=== PATIENT | female | born 1960 | race Caucasian/White ===

== ENCOUNTER 2021-01-23 08:22 | Emergency (ER) | payer MEDICARE, SELFPAY ==
[2021-01-23 08:24] VITALS: BP 129/84; PULSE 107; RESP 16; TEMP 37.3; O2SAT 98; BMI 42.7
--- NOTE | 2021-01-23 08:41 | CT_ITS ---
PROCEDURE: CT FACIAL BONES W CON CLINICAL HISTORY: Nasal septum abscess COMPARISON: No exams were available for comparison TECHNIQUE: 75 mL Isovue 370 Axial images obtained with sagittal and coronal reformats. All CT scans at the facility use one or more dose reduction, viz: automated exposure control, ma/kV adjustment per patient size (including targeted exams where dose is matched to indication, i.e. head), or iterative reconstruction technique. FINDINGS: There is mild soft tissue swelling involving the nose inferiorly and anteriorly. No organized abscess is apparent. Mild soft tissue swelling is present involving the anterior aspect of the nasal septum at the nasal region but no obvious abscess apparent. There is mild rightward nasal septal deviation. Small retention cyst is present in the right aspect of the maxillary sinus medially at 5 mm. The ethmoid, frontal, and sphenoid sinuses have an unremarkable appearance with the exception of a small sphenoid sinus retention cyst at approximately 5 mm posteriorly and on the left. No sinus air-fluid level apparent or diffuse mucosal thickening. No acute fracture or dislocation. No bony destructive process apparent. IMPRESSION: 1. No obvious abscess apparent. 2. Mild soft tissue swelling involving the nose and anterior nasal septum suggesting cellulitis. No drainable fluid collections apparent. 3. Mild rightward nasal septal deviation. Dictated by: Yunior Edwards MD 01/23/2021 09:44 Yunior Edwards MD in [place] 01/23/2021 09:44
--- NOTE | 2021-01-23 08:46 | HMH.EDGENADL ---
ED Disposition Clinical Impression: Cellulitis of nose Disposition: Home, Self-Care Condition on Discharge: Good Instructions: Cellulitis Prescriptions: Sulfamethoxazole/Trimethoprim [Bactrim DS tablet] 1 each PO BID 10 Days #40 tab Transmission Status: Pending to [facility] cephALEXin [Cephalexin 500mg Tab] 500 mg PO Q6H 10 Days #40 tab Transmission Status: Pending to [facility] Referrals: Emmanuel Parra MD [Primary Care Provider] - Bhavik Anderson MD [Staff Physician] - 01/25/21 (Call for appointment) - Critical Care Critical Care Time: No Attestation: On 01/23/21, the high probability of a clinically significant, sudden or life threatening deterioration of the following system(s) required my full and direct attention, intervention and personal management. The time I documented below is in addition to time spent performing reported procedures but includes the following listed in this critical care notation. Medical Decision Making - Medical Records Medical records reviewed: Yes: I reviewed the patient's medical records. - Arnold Inquiry Pt receiving controlled substance: No Vital Signs: 01/23/21 08:24 01/23/21 09:00 01/23/21 09:37 Temperature 99.1 F Temperature Source Oral Pulse Rate 94 H 98 H Pulse Rate [Radial] 107 H Respiratory Rate 16 18 18 Blood Pressure 137/89 104/85 L Blood Pressure [Right Arm] 129/84 Blood Pressure Mean [Right Arm] 99 Blood Pressure Position Sitting Blood Pressure Position [Right Arm] Sitting 02 Sat by Pulse Oximetry 98 97 98 Oxygen Delivery Method Room Air Room Air 01/23/21 09:40 Temperature Temperature Source Pulse Rate 102 H Pulse Rate [Radial] Respiratory Rate 18 Blood Pressure 104/85 L Blood Pressure [Right Arm] Blood Pressure Mean [Right Arm] Blood Pressure Position Blood Pressure Position [Right Arm] 02 Sat by Pulse Oximetry 97 Oxygen Delivery Method - Lab Data Lab Results 01/23/21 08:51: WBC 13.4 H, RBC 4.80, Hgb 12.5, Hct 31.3 L, MCV 65.1 L, MCH 26.0 L, MCHC 39.9 H, RDW 15.2, Plt Count 128 L, MPV 15.2 H, Neut % (Auto) 69.2, Lymph % (Auto) 21.1, [place] % (Auto) 6.2, Eos % (Auto) 1.8, Baso % (Auto) 1.8, Neut # (Auto) 9.3 H, Lymph # (Auto) 2.8, [place] # (Auto) 0.8, Eos # (Auto) 0.2, Baso # (Auto) 0.2 01/23/21 08:51: Sodium 136, Potassium 3.7, Chloride 100, Carbon Dioxide 23, Anion Gap 16.7 H, BUN 10, Creatinine 0.60, Estimated Creat Clear 95, Estimated GFR 102, Est GFR ( Amer) 124, Glucose 236 H, Calcium 9.0 Result diagrams: 01/23/21 08:51 01/23/21 08:51 Orders (Tests/Meds): ED MEDICATIONS Generic Name Dose Route Start Last Admin Trade Name Freq PRN Reason Stop Dose Admin Ceftriaxone Sodium 1 gm/ 50 mls @ 100 mls/hr 01/23/21 08:45 01/23/21 08:53 Sodium Chloride IV 02/06/21 08:44 100 mls/hr Q24H [place] Administration Protocol Discontinued Medications Generic Name Dose Route Start Last Admin Trade Name Freq PRN Reason Stop Dose Admin Sodium Chloride 1,000 mls @ 999 mls/hr 01/23/21 08:45 01/23/21 08:53 Sod Chlor 0.9% 1000ml Bag IV 01/23/21 09:45 999 mls/hr .Q1H1M [place] Administration Iopamidol 75 ml 01/23/21 09:27 01/23/21 09:28 Iopamidol-370 (76%);100ml Bottle IV 01/23/21 09:28 75 ml ONCE ONE Administration Ketorolac Tromethamine 30 mg 01/23/21 10:51 Ketorolac 30mg/Ml Vial IV 01/23/21 10:52 ONCE ONE Sodium Chloride 10 ml 01/23/21 09:27 01/23/21 09:28 Sodium Chloride 0.9% 10ml Syr (Rad Only) IV 01/23/21 09:28 10 ml ONCE ONE Administration - CT Data CT Scan: Other (face) Time Received: 10:[address] Reviewed: Yes: I have reviewed the patient's CT results, I have viewed the radiologist's interpretation Findings Narrative: IMPRESSION: 1. No obvious abscess apparent. 2. Mild soft tissue swelling involving the nose and anterior nasal septum suggesting cellulitis. No drainable fluid collections apparent. 3. Mild ri
[2021-01-23 09:00] VITALS: BP 137/89; PULSE 94; RESP 18; O2SAT 97
[2021-01-23 09:01] LABS: Basophils # 0.2 K/mm3 (0-0.2); Basophils % 1.8 % (0.1-2.0); Eosinophils # 0.2 K/mm3 (0.0-0.4); Eosinophils % 1.8 % (0.1-12.0); Hematocrit 31.3 % (37.0-47.0); Hemoglobin 12.5 g/dL (12.2-16.2); Lymphocytes # 2.8 K/mm3 (0.7-4.5); Lymphocytes % 21.1 % (10-50); Mean Corpuscular HGB Conc 39.9 g/dL (31.8-35.4); Mean Corpuscular Volume 65.1 fl (81-99); Mean Platelet Volume 15.2 fl (7.4-10.4); Monocytes # 0.8 K/mm3 (0.1-1.0); Monocytes % 6.2 % (1.7-9.3); Neutrophils # 9.3 K/mm3 (1.8-7.8); Neutrophils % 69.2 % (37.0-80.0); Platelet Count 128 K/mm3 (142-424); White Blood Count 13.4 K/mm3 (4.8-10.8)
[2021-01-23 09:02] LABS: Red Cell Distribution Width 15.2 % (11.5-17.5)
[2021-01-23 09:03] LABS: Chloride 100 mmol/L (98-107); Potassium 3.7 mmoL/L (3.5-5.1); Sodium 136 mmol/L (136-145)
[2021-01-23 09:05] LABS: Blood Urea Nitrogen 10 mg/dl (7-17); Creatinine Clearance Estimated 95 mL/min (50-200); Estimated Glomerular Filt Rate 102 ml/min (>60); GFR (African American) 124 ML/MIN (>60)
[2021-01-23 09:06] LABS: Anion Gap 16.7 mEq/L (5-15); Carbon Dioxide 23 mmol/L (22.0-30.0); Glucose 236 mg/dl (74-100)
[2021-01-23 09:37] VITALS: BP 104/85; PULSE 98; RESP 18; O2SAT 98
[2021-01-23 09:40] VITALS: BP 104/85; PULSE 102; RESP 18; O2SAT 97
[2021-01-23 11:04] VITALS: BP 132/74; PULSE 98; RESP 18; TEMP 37.1; O2SAT 98
== END 2021-01-23 11:06 | disposition home or self-care (01) ==
PROVIDERS: Emergency Provider Emergency Medicine; PCP Family Medicine
DX: J34.0 Abscess, furuncle and carbuncle of nose (principal); E11.9 Type 2 diabetes mellitus without complications; Z79.899 Other long term (current) drug therapy
CPT/HCPCS: 70487; 80048; 85025; 96365; 96367; 96375; 99282; Q9967

== ENCOUNTER 2021-05-31 20:13 | Emergency (ER) | payer MEDICARE, SELFPAY ==
[2021-05-31 20:14] VITALS: BP 135/82; PULSE 112; RESP 22; TEMP 36.8; O2SAT 98; BMI 38.7
--- NOTE | 2021-05-31 21:05 | HMH.EDEPIS ---
ED Disposition Clinical Impression: Epistaxis not due to trauma Disposition: Home, Self-Care Condition on Discharge: Good Instructions: DI for Nosebleed Additional Instructions: remove in am and recheck if needed Referrals: Emmanuel Parra MD [Primary Care Provider] - - Critical Care Critical Care Time: No Attestation: On 05/31/21, the high probability of a clinically significant, sudden or life threatening deterioration of the following system(s) required my full and direct attention, intervention and personal management. The time I documented below is in addition to time spent performing reported procedures but includes the following listed in this critical care notation. Medical Decision Making - Medical Records Medical records reviewed: Yes: I reviewed the patient's medical records. - Arnold Inquiry Pt receiving controlled substance: No Vital Signs: 05/31/21 20:14 Temperature 98.3 F Temperature Source Oral Pulse Rate [Right] 112 H Respiratory Rate 22 Blood Pressure [Right Arm] 135/82 Blood Pressure Mean [Right Arm] 99 02 Sat by Pulse Oximetry 98 Oxygen Delivery Method Room Air Medical Decision Narrative: remove packing in am Epistaxis HPI - General Chief complaint: Epistaxis Stated complaint: nose bleed Time Seen by Provider: 05/31/21 20:20 Mode of Arrival: Family Vehicle Source of Information: Patient, Medical Record Limitations: No Limitations Description of Symptoms (Recalled from ER Triage Doc. by RN): nose bleed started aprox 1955pt states she started passing clots through the nose. pt states no hx of nose bleeds - History of Present Illness HPI Narrative: acute atraumatic lt nares nosebleed unable to stop at home and no blood thinners complaint: epistaxis Location: left nostril Onset (ago): hour(s) Duration: intermittent Treatment prior to arrival: nose pinching, stuffed nose with tissue - Related Data Home Medications Medication Instructions Recorded Confirmed atorvastatin 40 mg tablet PO 30 Days #30 tab 06/14/18 02/06/21 metformin 1,000 mg tablet PO 30 Days #60 tab 06/14/18 02/06/21 paroxetine HCl 10 mg tablet 10 mg PO DAILY 06/14/18 02/06/21 potassium chloride 10 mEq PO 30 Days #30 tab 06/14/18 02/06/21 tablet,extended release cholecalciferol (vitamin D3) 125 5,000 unit PO DAILY 05/18/19 02/06/21 mcg (5,000 unit) capsule ergocalciferol (vitamin D2) 1,250 50,000 unit PO QWEEK 05/18/19 02/06/21 mcg (50,000 unit) capsule insulin glargine 100 unit/mL (3 20 unit SQ DAILY 05/18/19 02/06/21 mL) subcutaneous pen insulin glargine 100 unit/mL (3 30 unit SQ DAILY 05/18/19 02/06/21 mL) subcutaneous pen Previous Rx's Medication Instructions Recorded Furosemide [Lasix 20mg tab] 20 mg PO DAILY #3 tab 11/30/17 fluticasone propionate 50 1 spray INTRANASAL DAILY #15.8 g 06/14/18 mcg/actuation nasal spray,suspension Sulfamethoxazole/Trimethoprim 1 each PO BID 10 Days #40 tab 01/23/21 [Bactrim DS tablet] cephALEXin [Cephalexin 500mg Tab] 500 mg PO Q6H 10 Days #40 tab 01/23/21 Allergies Allergy/AdvReac Type Severity Reaction Status Date / Time hydromorphone [From DILAUDID] Allergy Unknown MAKES HER Verified 02/06/21 14:59 FEEL LIKE SOMETHING CRAWLING ON HER SKIN meperidine [MEPERIDINE] Allergy Unknown NA-NAUSEA/V Verified 02/06/21 14:59 OMITING [facility] History - Hepatitis A Screen Drug use history?: No High risk sexual behaviors?: No History of sexually transmitted infection?: No Currently employed?: No Childcare worker?: No Do you have indoor plumbing?: Yes Do you have electricity?: Yes Attestation statement:: This patient has been screened for Hepatitis A risk factors. I have reviewed the patient's past medical history: Yes Medical History: Reports:: Diabetes Mellitus Type 2, Hyperlipidemia Denies:: Cancer, MRSA Laterality Cases: Right: Arthroscopy Knee Other Surgeries: Yes: Cardiac Catheteriz
[2021-05-31 21:33] VITALS: BP 101/73; PULSE 102; RESP 16; TEMP 36.9
== END 2021-05-31 21:40 | disposition home or self-care (01) ==
PROVIDERS: Emergency Provider Emergency Medicine; PCP Family Medicine
DX: R04.0 Epistaxis (principal); E11.9 Type 2 diabetes mellitus without complications; E78.5 Hyperlipidemia, unspecified; Z79.899 Other long term (current) drug therapy
CPT/HCPCS: 30901; 96365; 99282

== ENCOUNTER 2021-09-20 09:01 | Emergency (ER) | payer MEDICARE, SELFPAY ==
[2021-09-20 09:19] VITALS: BP 152/71; PULSE 111; RESP 20; TEMP 36.6; O2SAT 96; BMI 41.9
--- NOTE | 2021-09-20 09:25 | HMH.EDUTC ---
[facility] [place] Clinical Impression: Pharyngitis Qualifiers: Pharyngitis/tonsillitis etiology: unspecified etiology Qualified Code(s): J02.9 - Acute pharyngitis, unspecified Sinusitis Qualifiers: Sinusitis location: unspecified location Chronicity: acute Recurrence: non-recurrent Qualified Code(s): J01.90 - Acute sinusitis, unspecified Disposition: Home, Self-Care Condition on Discharge: Good Instructions: DI for Pharyngitis/Tonsillopharyngitis -- Adult, DI for Sinusitis Additional Instructions: Drink plenty of fluids. Take tylenol or ibuprofen for pain or fever. Take the medications as directed. Follow up with your regular doctor. GO TO THE ER FOR ANY WORSENING SYMPTOMS Quarantine until you know the results of your covid-19 test. Notify your school or workplace of your results and follow their instructions regarding return to work/school. Prescriptions: Amoxicillin [Amoxicillin 875MG Tab] 875 mg PO Q12H #20 tab Transmission Status: Received by [facility] guaiFENesin [Mucinex 600mg tablet] 1 - 2 tab PO BIDP PRN #30 tab PRN Reason: Congestion Transmission Status: Received by [facility] Referrals: Provider,Referral, MD [Primary Care Provider] - Time of Disposition: 10:15 Medical Decision Making - Medical Records Medical records reviewed: No: I reviewed the patient's medical records. - Arnold Inquiry Pt receiving controlled substance: No Vital Signs: 09/20/21 09:19 09/20/21 10:20 Temperature 98 F 98 F Temperature Source Oral Pulse Rate 111 H Pulse Rate [Left] 111 H Respiratory Rate 20 20 Blood Pressure 152/71 H Blood Pressure [Right Arm] 152/71 H Blood Pressure Mean [Right Arm] 98 02 Sat by Pulse Oximetry 96 - Lab Data Lab results reviewed: Yes: I reviewed the patient's lab results. Lab Results 09/20/21 09:25: Group A Strep Rapid Negative Orders (Tests/Meds): ORDERS Category Date Time Status Covid-19 Nasal PCR ([facility]) Routine Lab 09/20/21 09:25 Received Strep Screen Confirmation Stat Micro 09/20/21 09:25 Received [facility] [place] - General Stated complaint: possible strep Time Seen by Provider: 09/20/21 09:25 - History of Present Illness Provider Complaint: She states that for the past 2 days she has had a worsening sore throat. She denies any fever or chills. She denies any cough or chest congestion. She has been fully vaccinated against covid-19. - Related Data Home Medications Medication Instructions Recorded Confirmed atorvastatin 40 mg tablet PO 30 Days #30 tab 06/14/18 02/06/21 metformin 1,000 mg tablet PO 30 Days #60 tab 06/14/18 02/06/21 paroxetine HCl 10 mg tablet 10 mg PO DAILY 06/14/18 02/06/21 potassium chloride 10 mEq PO 30 Days #30 tab 06/14/18 02/06/21 tablet,extended release cholecalciferol (vitamin D3) 125 5,000 unit PO DAILY 05/18/19 02/06/21 mcg (5,000 unit) capsule ergocalciferol (vitamin D2) 1,250 50,000 unit PO QWEEK 05/18/19 02/06/21 mcg (50,000 unit) capsule insulin glargine 100 unit/mL (3 20 unit SQ DAILY 05/18/19 02/06/21 mL) subcutaneous pen insulin glargine 100 unit/mL (3 30 unit SQ DAILY 05/18/19 02/06/21 mL) subcutaneous pen Previous Rx's Medication Instructions Recorded Furosemide [Lasix 20mg tab] 20 mg PO DAILY #3 tab 11/30/17 fluticasone propionate 50 1 spray INTRANASAL DAILY #15.8 g 06/14/18 mcg/actuation nasal spray,suspension Sulfamethoxazole/Trimethoprim 1 each PO BID 10 Days #40 tab 01/23/21 [Bactrim DS tablet] cephALEXin [Cephalexin 500mg Tab] 500 mg PO Q6H 10 Days #40 tab 01/23/21 Amoxicillin [Amoxicillin 875MG 875 mg PO Q12H #20 tab 09/20/21 Tab] guaiFENesin [Mucinex 600mg tablet] 1 - 2 tab PO BIDP PRN #30 tab 09/20/21 Allergies Allergy/AdvReac Type Severity Reaction Status Date / Time hydromorphone [From DILAUDID] Allergy Unknown MAKES HER Verified 09/20/21 09:30 FEEL LIKE SOMETHING CRAWLING ON HER SKIN mep
[2021-09-20 09:48] LABS: Strep Scrn Group A (Rapid) Negative (Negative)
[2021-09-20 10:20] VITALS: BP 152/71; PULSE 111; RESP 20; TEMP 36.6
== END 2021-09-20 10:22 | disposition home or self-care (01) ==
PROVIDERS: Emergency Provider Nurse Practitioner Family
DX: J01.90 Acute sinusitis, unspecified (principal); E11.9 Type 2 diabetes mellitus without complications; E78.5 Hyperlipidemia, unspecified; Z20.822 Contact with and (suspected) exposure to COVID-19
CPT/HCPCS: G0463; 87430; 99203; C9803; U0003; U0005

== ENCOUNTER 2022-01-18 09:02 | Emergency (ER) | payer MEDICARE, SELFPAY ==
[2022-01-18 09:05] VITALS: BP 122/72; PULSE 91; RESP 16; TEMP 37; O2SAT 98; BMI 40.8
--- NOTE | 2022-01-18 09:13 | XR_ITS ---
FINAL REPORT CLINICAL HISTORY: dropped water bottle on lt foot last night, pain FINDINGS: LEFT FOOT: Three views of the left foot were obtained. There is no acute fracture or dislocation. There are mild degenerative changes. There is a plantar calcaneal spur. IMPRESSION: No acute bony abnormality. Reviewed, Interpreted and Dictated by Dave Linn III, MD Transcribed by Mary Gonzalez Authenticated and . [facility]
--- NOTE | 2022-01-18 09:58 | HMH.EDUTC ---
[facility] [place]position Clinical Impression: Contusion, toes Qualifiers: Encounter type: initial encounter Toe: unspecified toe Damage to nail status: without damage Laterality: unspecified laterality Qualified Code(s): S90.129A - Contusion of unspecified lesser toe(s) without damage to nail, initial encounter Disposition: Home, Self-Care Condition on Discharge: Good Instructions: How To Perform RICE (Rest, Ice, Compress, Elevate) Additional Instructions: *weight bearing as tolerated *RICE, Rest the extremity, Ice 15-20 minutes 3-4 times daily, Compress- wear the blane wrap as discussed as much as possible to help reduce swelling and pain, Elevate the extremity when at rest *Blane wrap is for support and help control swelling, use it except in the shower. Be sure that is not to tight but not to loose either *Elevate when resting *Ibuprofen as directed on package every 6-8 hours as needed for pain an inflammation. If need something more can take Tylenol in between doses of Ibuprofen to help Immediately follow up with your family doctor for new or worsening of symptoms, or no noticeable improvement over the next 3-5 days Referrals: Emmanuel Parra MD [Primary Care Provider] - As needed Time of Disposition: 10:03 Medical Decision Making - Arnold Inquiry Pt receiving controlled substance: No Arnold was queried for this patient: No Vital Signs: 01/18/22 09:05 01/18/22 10:12 Temperature 98.6 F 98.6 F Temperature Source Oral Pulse Rate 91 H Pulse Rate [Right Brachial] 91 H Respiratory Rate 16 16 Blood Pressure 122/72 Blood Pressure [Right Arm] 122/72 Blood Pressure Mean [Right Arm] 88 Blood Pressure Source [Right Arm] Automatic Cuff Blood Pressure Position [Right Arm] Sitting 02 Sat by Pulse Oximetry 98 Oxygen Delivery Method Room Air - Radiology Data #1 Image(s): Foot/Toes Image Reviewed: Yes I reviewed the patient's radiology image Preliminary Findings: No Fracture Seen [facility] [place] HPI - General Stated complaint: possible broken toe lt foot Time Seen by Provider: 01/18/22 09:58 Mode of Arrival: Ambulatory Source of Information: Patient Limitations: No Limitations Description of Symptoms (Recalled from Triage Doc. by RN): PATIENT STATES SHE DROPPED A METAL WATER BOTTLE ON HER LEFT FOOT AND THINKS SHE BROKE HER TOES HEENT Symptoms (Recalled from RN notes): No Resp Symptoms (Recalled from RN notes): No Skin Symptoms (Recalled from RN notes): No MS Symptoms (Recalled from RN notes): Yes Functional Status (Recalled from RN notes): WNL - History of Present Illness Provider Complaint: Patient states that she accidently knocked off a metal bottle of water last night from the night stand and it landed on her left 4th and 5th toes States that she is worried that she may have broken them so she came in to get them checked - Related Data Home Medications Medication Instructions Recorded Confirmed atorvastatin 40 mg tablet PO 30 Days #30 tab 06/14/18 02/06/21 metformin 1,000 mg tablet PO 30 Days #60 tab 06/14/18 02/06/21 paroxetine HCl 10 mg tablet 10 mg PO DAILY 06/14/18 02/06/21 potassium chloride 10 mEq PO 30 Days #30 tab 06/14/18 02/06/21 tablet,extended release cholecalciferol (vitamin D3) 125 5,000 unit PO DAILY 05/18/19 02/06/21 mcg (5,000 unit) capsule ergocalciferol (vitamin D2) 1,250 50,000 unit PO QWEEK 05/18/19 02/06/21 mcg (50,000 unit) capsule insulin glargine 100 unit/mL (3 20 unit SQ DAILY 05/18/19 02/06/21 mL) subcutaneous pen insulin glargine 100 unit/mL (3 30 unit SQ DAILY 05/18/19 02/06/21 mL) subcutaneous pen Previous Rx's Medication Instructions Recorded Furosemide [Lasix 20mg tab] 20 mg PO DAILY #3 tab 11/30/17 fluticasone propionate 50 1 spray INTRANASAL DAILY #15.8 g 06/14/18 mcg/actuation nasal spray,suspension Sulfamethoxazole/Trimethoprim 1 each PO BID 10 Days #40 tab 01/23/21 [Bactrim DS tablet] cephALEXin [Cephalexin 500mg Tab] 500 mg PO Q6H 10 Da
[2022-01-18 10:12] VITALS: BP 122/72; PULSE 91; RESP 16; TEMP 37; O2SAT 98
== END 2022-01-18 10:23 | disposition home or self-care (01) ==
PROVIDERS: Emergency Provider Nurse Practitioner; PCP Family Medicine
DX: S90.129A Contusion of unspecified lesser toe(s) without damage to nail, initial encounter (principal); Z88.6 Allergy status to analgesic agent; E11.9 Type 2 diabetes mellitus without complications; E78.5 Hyperlipidemia, unspecified
CPT/HCPCS: 73630; 99212; G0463

== ENCOUNTER 2022-02-03 19:38 | Emergency (ER) | payer MEDICARE, SELFPAY ==
[2022-02-03 19:48] VITALS: BP 139/88; PULSE 110; RESP 18; TEMP 36.8; O2SAT 96; BMI 41.9
--- NOTE | 2022-02-03 20:13 | HMH.EDUTC ---
[facility] [place] Clinical Impression: UTI (urinary tract infection) Qualifiers: Urinary tract infection type: acute cystitis Hematuria presence: with hematuria Qualified Code(s): N30.01 - Acute cystitis with hematuria Second degree burn of right foot Qualifiers: Encounter type: initial encounter Qualified Code(s): T25.221A - Burn of second degree of right foot, initial encounter Disposition: Home, Self-Care Condition on Discharge: Good Instructions: DI for Urinary Tract Infection (UTI) Additional Instructions: Drink plenty of fluids. Take tylenol or ibuprofen for pain or fever. Take the medications as directed. Follow up with your regular doctor. GO TO THE ER FOR ANY WORSENING SYMPTOMS The pyridium will make your urine turn orange, this is an expected side effect. It will stain your clothes if it comes into contact with them. We will culture the urine. That will tell what bacteria is causing your infection and which antibiotics will treat it best. Sometimes the first antibiotic we prescribe turns out to not work against different bacteria. So, make sure you follow up within 3 days if you are not getting better. Make sure you follow up with your surgeon by Saturday. Use the Mupirocin ointment on the small burn you have on top of your right foot. Prescriptions: Mupirocin [Bactroban 2% Ointment 22gm tube] 1 applicatio TP TID 7 Days #1 gm [email or web address] Ciprofloxacin HCl [Cipro 500mg Tab] 500 mg PO BID 7 Days #14 tab Transmission Status: Received by [facility] Phenazopyridine HCl [Pyridium 200mg Tablet] 200 pow PO TID #6 tab Transmission Status: [email or web address] Referrals: Emmanuel Parra MD [Primary Care Provider] - Time of Disposition: 20:26 Medical Decision Making - Medical Records Medical records reviewed: No: I reviewed the patient's medical records. - Arnold Inquiry Pt receiving controlled substance: No Vital Signs: 02/03/22 19:48 02/03/22 20:51 Temperature 98.3 F 98.3 F Temperature Source Oral Pulse Rate 110 H Pulse Rate [Left Radial] 110 H Respiratory Rate 18 18 Blood Pressure 139/88 Blood Pressure [Right Arm] 139/88 Blood Pressure Mean [Right Arm] 105 02 Sat by Pulse Oximetry 96 - Lab Data Lab results reviewed: Yes: I reviewed the patient's lab results. Lab Results 02/03/22 20:04: Urine Color Yellow, Urine Appearance Cloudy, Urine pH 5.5, Ur Specific [place] >= 1.030, Urine Protein 2+, Urine Glucose (UA) 1+, Urine Ketones Trace, Urine Blood 2+, Urine Nitrate Negative, Urine Bilirubin Negative, Urine Urobilinogen 0.2, Ur Leukocyte Esterase Trace Orders (Tests/Meds): ED MEDICATIONS Discontinued Medications Generic Name Dose Route Start Last Admin Trade Name Mike PRN Reason Stop Dose Admin Ceftriaxone Sodium 1 gm 02/03/22 20:20 02/03/22 20:38 Ceftriaxone 1gm Vial IM 02/03/22 20:21 1 gm ONCE ONE Administration Lidocaine HCl 0 ml 02/03/22 20:20 02/03/22 20:38 Lidocaine 1% 5ml Pf Vial IM 02/03/22 20:21 2 ml ONCE ONE Administration ORDERS Category Date Time Status Urine Culture Stat Micro 02/03/22 19:51 Results [facility] [place] - General Stated complaint: Possible UTI Time Seen by Provider: 02/03/22 20:13 - History of Present Illness Provider Complaint: She has been having low back pain and dysuria for the past 2 days. She also has a small burn in the top of her right foot that happened when she was cooking 3 days ago. She states that it is getting better. - Related Data Home Medications Medication Instructions Recorded Confirmed atorvastatin 40 mg tablet PO 30 Days #30 tab 06/14/18 02/06/21 metformin 1,000 mg tablet PO 30 Days #60 tab 06/14/18 02/06/21 paroxetine HCl 10 mg tablet 10 mg PO DAILY 06/14/18 02/06/21 potassium chloride 10 mEq PO 30 Days #30 tab 06/14/18 02/06/21 tablet,extended release cholecalciferol
[2022-02-03 20:40] LABS: Apearance,Urine Cloudy (Clear); Color,Urine Yellow (Yellow); Glucose,Urine (UA) 1+ (Negative); Ketones,Urine TRACE (Negative); PH,Urine 5.5 (5.0-8.5); Specific Gravity, Urine >= 1.030 (1.005-1.030)
[2022-02-03 20:41] LABS: Protein,Urine 2+ (Negative)
[2022-02-03 20:42] LABS: Bilirubin,Urine Negative (Negative); Blood, Urine 2+ (Negative); UTC Leukocyte Esterase,Urine Trace (Negative); UTC Nitrate,Urine Negative (Negative); Urobilinogen,Urine 0.2 EU/dl (0.2)
[2022-02-03 20:51] VITALS: BP 139/88; PULSE 110; RESP 18; TEMP 36.8
== END 2022-02-03 20:52 | disposition home or self-care (01) ==
PROVIDERS: Emergency Provider Nurse Practitioner Family; PCP Family Medicine
DX: N30.01 Acute cystitis with hematuria (principal); T25.221A Burn of second degree of right foot, initial encounter; M54.50 Low back pain, unspecified; E78.5 Hyperlipidemia, unspecified; E11.9 Type 2 diabetes mellitus without complications; Z79.4 Long term (current) use of insulin; Z79.51 Long term (current) use of inhaled steroids; Z79.84 Long term (current) use of oral hypoglycemic drugs; Z79.899 Other long term (current) drug therapy; Z88.5 Allergy status to narcotic agent; Z88.6 Allergy status to analgesic agent; Z88.8 Allergy status to other drugs, medicaments and biological substances
CPT/HCPCS: 81003; 87086; 87088; 87186; 96372; 99213; G0463; J0696

== ENCOUNTER 2022-04-12 15:19 | Emergency (ER) | payer MEDICARE, SELFPAY ==
[2022-04-12 16:55] VITALS: BP 139/86; PULSE 86; RESP 18; TEMP 36.7; O2SAT 97; BMI 40.1
[2022-04-12 16:59] LABS: Apearance,Urine Cloudy (Clear); Color,Urine Dark Yellow (Yellow); Glucose,Urine (UA) Negative (Negative); Protein,Urine 1+ (Negative)
[2022-04-12 17:00] LABS: Bilirubin,Urine Negative (Negative); Blood, Urine Negative (Negative); Ketones,Urine 3+ (Negative); UTC Leukocyte Esterase,Urine 1+ (Negative); UTC Nitrate,Urine Negative (Negative); Urobilinogen,Urine 0.2 EU/dl (0.2)
--- NOTE | 2022-04-12 17:03 | EXP.UTC ---
Discharge Plan Disposition Patient Disposition: Home, Self-Care Condition: Good Prescriptions Prescriptions: New cefdinir 300 mg capsule 300 mg PO BID 10 Days Qty: 20 0RF phenazopyridine [Pyridium] 200 mg tablet 200 mg PO Q8H 2 Days Qty: 6 0RF No Action metformin 1,000 mg tablet PO 30 Days Qty: 60 atorvastatin 40 mg tablet PO 30 Days Qty: 30 potassium chloride 10 mEq tablet extended release PO 30 Days Qty: 30 paroxetine HCl [Paxil] 10 mg tablet 10 mg PO DAILY fluticasone propionate [Allergy Relief (fluticasone)] 50 mcg/actuation spray,suspension 1 spray INTRANASAL DAILY Qty: 15.8 2RF Rx Instructions: administer into each nostril Basaglar KwikPen U-100 Insulin 100 unit/mL (3 mL) insulin pen 30 unit SQ DAILY cholecalciferol (vitamin D3) 5,000 unit capsule 5,000 unit PO DAILY ergocalciferol (vitamin D2) [Vitamin D2] 50,000 unit capsule 50,000 unit PO QWEEK Basaglar KwikPen U-100 Insulin 100 unit/mL (3 mL) insulin pen 20 unit SQ DAILY furosemide 20 MG tablet 20 mg PO DAILY Qty: 3 0RF sulfamethoxazole-trimethoprim 1 EACH tablet 1 each PO BID 10 Days Qty: 40 0RF cephalexin 500 MG tablet 500 mg PO Q6H 10 Days Qty: 40 0RF amoxicillin 875 MG tablet 875 mg PO Q12H Qty: 20 0RF guaifenesin 600 MG tablet extended release 12hr 1 - 2 tab PO BIDP PRN (Reason: Congestion) Qty: 30 0RF phenazopyridine 200 MG tablet 200 pow PO TID Qty: 6 0RF ciprofloxacin HCl 500 MG tablet 500 mg PO BID 7 Days Qty: 14 0RF mupirocin 22 GM ointment 1 applicatio TP TID 7 Days Qty: 1 0RF Referrals Referrals: Emmanuel Parra MD [Primary Care Provider] - Enter time for follow up Activity Restrictions/Add. Instructions Additional Instructions/Restrictions: *Increase fluids. Water not Soda or Tea *Start antibiotic immediately and be sure to take as ordered for the FULL length of time although you should start to see improvement over the next 48 hours *Pyridium as needed Remember this medication will turn your urine . This is normal but it will stain what ever it gets on *You should not use Pyridium for more than 48 hours. If so , follow up with your primary physician to review urine culture and ensure that antibiotic is adequate for infection *Be SURE to follow up anytime for new or worsening symptoms with your family doctor. AND in 48 hours for urine culture results with your family doctor, if you do not have a doctor then you may call back to the [facility] for urine culture results and further treatment. We do recommend that you choose and establish care with a Primary Care Physician. ?AND follow up with them ?in 10-14 days to repeat UA to ensure infection is resolved and blood no longer present *Be sure to let your PCP know that we sent urine cultures from the [facility] so they can follow up to ensure that you area the on the correct antibiotic Call your doctor office and make appointment for 48 hours (2 days from today) ?to follow up and get the results of your urine culture and further treatment Go straight to ER for any life threatening symptoms Clinical Impressions Clinical Impression: UTI (urinary tract infection) Instructions Patient Instructions: DI for Urinary Tract Infection (UTI) Discharge ED Provider: Sanam Wright [facility] [place] General Stated complaint: burning,frequency Time Seen by Provider: 04/12/22 17:04 History of Present Illness Provider Complaint: Patient states that she is a diabetic and she gets UTI's States that she started having burning with urination a couple days ago and having urgency and frequency States that she noticed her blood sugar was a little higher than normal and she does that when she gets a UTI so she came in to get checked Related Data Home Medications Medication Instructions Recorded Confirmed atorvastatin 40 mg tablet PO 30 days #30 tabs 06/14/18 02/06/21 metformin 1,000 mg tablet PO 30
[2022-04-12 17:38] VITALS: BP 139/86; PULSE 86; RESP 18; TEMP 36.7; O2SAT 97
== END 2022-04-12 17:42 | disposition home or self-care (01) ==
PROVIDERS: Emergency Provider Nurse Practitioner; PCP Family Medicine
DX: N39.0 Urinary tract infection, site not specified (principal); E11.9 Type 2 diabetes mellitus without complications
CPT/HCPCS: 81003; 87086; 87088; 87186; 99212; G0463

== ENCOUNTER 2022-05-08 07:31 | Emergency (ER) | payer MEDICARE, SELFPAY ==
[2022-05-08 07:31] VITALS: BP 145/56; PULSE 115; RESP 20; TEMP 37.7; O2SAT 98; BMI 33.2
[2022-05-08 07:55] LABS: Microscopic, Urine URINE MICROSCOPIC (MICROSCOPIC)
[2022-05-08 07:58] LABS: Appearance,Urine SL CLOUDY (Clear); Bilirubin,Urine Negative (Negative); Blood, Urine 3+ (Negative); Color,Urine YELLOW (Yellow); Glucose,Urine (UA) 2+ (Negative); Ketones,Urine Negative (Negative); Leukocyte Esterase,Urine 2+ (Negative); Nitrate,Urine POSITIVE (Negative); PH,Urine 5.5 (5.0-8.5); Protein,Urine 2+ (Negative); Specific Gravity, Urine >= 1.030 (1.005-1.030)
[2022-05-08 08:01] VITALS: BP 103/55; PULSE 100; RESP 18; O2SAT 96
[2022-05-08 08:05] LABS: Bacteria,Urine 1+ /lpf; RBC,Urine 20-50 #/hpf (0-3)
[2022-05-08 08:22] LABS: Basophils # 0.1 K/mm3 (0-0.2); Basophils % 0.6 % (0.1-2.0); Eosinophils # 0.2 K/mm3 (0.0-0.4); Eosinophils % 2.5 % (0.1-12.0); Hematocrit 41.5 % (37.0-47.0); Lymphocytes # 1.9 K/mm3 (0.7-4.5); Lymphocytes % 22.3 % (10-50); Mean Corpuscular HGB Conc 31.3 g/dL (31.8-35.4); Mean Corpuscular Hemoglobin 25.9 pg (27.0-31.2); Mean Corpuscular Volume 82.6 fl (81-99); Mean Platelet Volume 8.1 fl (7.4-10.4); Monocytes # 0.5 K/mm3 (0.1-1.0); Monocytes % 5.5 % (1.7-9.3); Neutrophils # 5.9 K/mm3 (1.8-7.8); Neutrophils % 69.1 % (37.0-80.0); Platelet Count 248 K/mm3 (142-424); Red Blood Count 5.03 M/mm3 (4.20-5.40); Red Cell Distribution Width 16.2 % (11.5-17.5); White Blood Count 8.6 K/mm3 (4.8-10.8)
--- NOTE | 2022-05-08 08:23 | PC.NURSE ---
Pt ambulate to and from restroom
[2022-05-08 08:24] LABS: Chloride 98 mmol/L (98-107)
[2022-05-08 08:25] LABS: Potassium 4.3 mmoL/L (3.5-5.1); Sodium 138 mmol/L (136-145)
[2022-05-08 08:27] LABS: Alanine Aminotransferase 53 U/L (12-78); Alkaline Phosphatase 135 U/L (38-126); Aspartate Amino Transferase 89 U/L (14-36); Bilirubin,Total 0.3 mg/dl (0.2-1.3); Blood Urea Nitrogen 17 mg/dl (7-17); Creatinine Clearance Estimated 72 mL/min (50-200); Estimated Glomerular Filt Rate 85 ml/min (>60); GFR (African American) 103 ML/MIN (>60)
[2022-05-08 08:28] LABS: Albumin/Globulin Ratio 1.3 (1.1-1.8); Anion Gap 16.3 mEq/L (5-15); Calcium 9.2 mg/dl (8.4-10.2); Carbon Dioxide 28 mmol/L (22.0-30.0); Globulin 3.1 g/dL (1.3-3.2); Glucose 281 mg/dl (74-100); Total Protein,Serum 7.1 g/dl (6.3-8.2)
[2022-05-08 08:31] VITALS: BP 103/47; PULSE 94; O2SAT 95
--- NOTE | 2022-05-08 08:55 | PC.NURSE ---
pt updated on plan of care
[2022-05-08 09:00] VITALS: BP 111/56; PULSE 91; RESP 18; O2SAT 95
--- NOTE | 2022-05-08 09:03 | PC.NURSE ---
pt ambulate to restroom
--- NOTE | 2022-05-08 09:17 | CT_ITS ---
FINAL REPORT TECHNIQUE: Axial images through the abdomen and pelvis were performed without contrast. This study was performed with techniques to keep radiation doses as low as reasonably achievable, (ALARA). Individualized dose reduction techniques using automated exposure control or adjustment of mA and/or kV according to the patient's size were employed. CLINICAL HISTORY: R flank pain, r/o stone, had bladder surgery in december 2021 FINDINGS: Abdomen: There is pleural scarring in the left lung base. The liver is enlarged with moderate fatty infiltration. The gallbladder is absent. The spleen, pancreas, adrenals and kidneys are unremarkable. There is a fat containing umbilical hernia. Pelvis: There are a few small appendicoliths within the appendix. There is no localized inflammatory change. The uterus is present and lies midline. There are scattered diverticula throughout the descending and sigmoid colon. There is a large calcified stone within the dependent portion of the urinary bladder. Stone measures 1.7 cm. There is no pelvic mass or inflammation. IMPRESSION: Descending and sigmoid diverticulosis. Large calcified stone in the dependent urinary bladder. Small appendicoliths within the appendix without adjacent inflammation. Hepatomegaly with fatty infiltration of the liver. Reviewed, Interpreted and Dictated by Jun Paul MD Transcribed by Drew Hall Authenticated and [facility]
--- NOTE | 2022-05-08 09:18 | HMH.EDGENADL ---
Discharge Plan Disposition Patient Disposition: Home, Self-Care Condition: Good Prescriptions Prescriptions: New cefdinir 300 mg capsule 300 mg PO BID Qty: 20 0RF No Action metformin 1,000 mg tablet PO 30 Days Qty: 60 atorvastatin 40 mg tablet PO 30 Days Qty: 30 potassium chloride 10 mEq tablet extended release PO 30 Days Qty: 30 paroxetine HCl [Paxil] 10 mg tablet 10 mg PO DAILY fluticasone propionate [Allergy Relief (fluticasone)] 50 mcg/actuation spray,suspension 1 spray INTRANASAL DAILY Qty: 15.8 2RF Rx Instructions: administer into each nostril Basaglar KwikPen U-100 Insulin 100 unit/mL (3 mL) insulin pen 30 unit SQ DAILY cholecalciferol (vitamin D3) 5,000 unit capsule 5,000 unit PO DAILY ergocalciferol (vitamin D2) [Vitamin D2] 50,000 unit capsule 50,000 unit PO QWEEK Basaglar KwikPen U-100 Insulin 100 unit/mL (3 mL) insulin pen 20 unit SQ DAILY furosemide 20 MG tablet 20 mg PO DAILY Qty: 3 0RF sulfamethoxazole-trimethoprim 1 EACH tablet 1 each PO BID 10 Days Qty: 40 0RF cephalexin 500 MG tablet 500 mg PO Q6H 10 Days Qty: 40 0RF amoxicillin 875 MG tablet 875 mg PO Q12H Qty: 20 0RF guaifenesin 600 MG tablet extended release 12hr 1 - 2 tab PO BIDP PRN (Reason: Congestion) Qty: 30 0RF phenazopyridine 200 MG tablet 200 pow PO TID Qty: 6 0RF ciprofloxacin HCl 500 MG tablet 500 mg PO BID 7 Days Qty: 14 0RF mupirocin 22 GM ointment 1 applicatio TP TID 7 Days Qty: 1 0RF cefdinir 300 mg capsule 300 mg PO BID 10 Days Qty: 20 0RF phenazopyridine [Pyridium] 200 mg tablet 200 mg PO Q8H 2 Days Qty: 6 0RF Referrals Follow up/Referrals: Emmanuel Parra MD [Primary Care Provider] - See instructions Activity Restrictions/Add. Instructions Additional Instructions/Restrictions: You have a urinary tract infection and a bladder stone. Call your urologic gynecologic surgeon today to arrange follow-up to be seen soon as possible. Take your CT scan disc with you at the time of follow-up. Additional instructions for URINARY TRACT INFECTION: Take antibiotic as prescribed. Return immediately if you have an uncontrollable fever greater than 102 degrees, severe back or abdominal pain, inability to urinate, or repetitive vomiting. Clinical Impressions Clinical Impression: Pyelonephritis, Bladder calculus Discharge ED Provider: Emmanuel Erwin General Adult HPI General Chief complaint: PAIN Stated complaint: possible kidney stone, UTI Time Seen by Provider: 05/08/22 09:02 Mode of Arrival: Ambulatory Source of Information: Patient Limitations: No Limitations Description of Symptoms (Recalled from ER Triage Doc. by RN): to ed per pvt car with c/o lower abd pain radiating into back. c/o burning with urination. pt states she has been getting freg UTI's since having surgery vaginal sling 4 months ago. pt took AZO last night. History of Present Illness HPI narrative: Patient states she has 2-day history of urinary frequency, dysuria, urinary urgency, lower abdominal pain and right flank pain. Denies fever or vomiting. States that she had a vaginal sling procedure 4 months ago by a uro-gynecologic surgeon in [facility]. Since then she has had constant urinary tract infections. She says that she has been to the urgent treatment center 4 times and is seeing her surgeon a couple of times for the urinary tract infections. She says that she will start feeling better about detention through an antibiotic prescription, but then when she finishes the prescription symptoms recur again. Symptoms are different this time and that she has the pain into her right flank. No history of kidney stones in the past. She did not have frequent urinary tract infections prior to having the surgery. Related Data Home Medications Medication Instructions Recorded Confirmed atorvastatin 40
[2022-05-08 09:50] LABS: Lactic Acid 2.8 mmol/L (0.7-2.1)
[2022-05-08 10:59] VITALS: BP 135/95; PULSE 88; RESP 18; TEMP 37.7; O2SAT 98
[2022-05-08 13:36] LABS: Reflex Lactic Add Lactic Reflex
== END 2022-05-08 11:04 | disposition home or self-care (01) ==
PROVIDERS: Emergency Medicine; Emergency Provider Emergency Medicine; PCP Family Medicine
DX: N20.0 Calculus of kidney (principal); Z87.440 Personal history of urinary (tract) infections; Z88.5 Allergy status to narcotic agent; E11.9 Type 2 diabetes mellitus without complications; E78.5 Hyperlipidemia, unspecified; F41.9 Anxiety disorder, unspecified
CPT/HCPCS: 74176; 80053; 81001; 83605; 85025; 87040; 87086; 96365; 96375; 99284; J0696

== ENCOUNTER 2022-08-25 04:05 | Emergency (ER) | payer MEDICARE, SELFPAY ==
[2022-08-25 04:06] VITALS: BP 127/108; PULSE 98; RESP 22; TEMP 37.1; O2SAT 95; BMI 42.7
--- NOTE | 2022-08-25 04:13 | ECG_ITS ---
APPROVED REPORT Exam: Resting ECG HR:94 bpm ECG Measurements Heart Rate 94 AXES MO 150 P 40 QRSd 93 QRS 42 QT 348 T 67 QTc 400 Conclusion SINUS RHYTHM NORMAL ECG UNCONFIRMED REPORT Electronically signed by : Gary Warner MD 08/25/2022 21:19:00
--- NOTE | 2022-08-25 04:17 | XR_ITS ---
PROCEDURE INFORMATION: Exam: XR Chest Exam date and time: 08/25/2022 4:15 AM Age: 62 years old Clinical indication: Pain; Chest pressure; Additional info: SOA TECHNIQUE: Imaging protocol: Radiologic exam of the chest. Views: 2 views. COMPARISON: CR CXR2V XR chest 2V 11/30/2017 9:51 PM FINDINGS: Lungs: Some patchy areas of peripheral airspace disease are noted. Pleural spaces: Unremarkable. No pleural effusion. No pneumothorax. Heart/Mediastinum: Unremarkable. No cardiomegaly. Bones/joints: Unremarkable. IMPRESSION: Patchy areas of peripheral airspace disease.
[2022-08-25 04:24] LABS: Influenza A, PCR Not Detected (NotDetected); Influenza B, PCR Not Detected (NotDetected)
[2022-08-25 04:31] LABS: Basophils # 0.1 K/mm3 (0-0.2); Basophils % 1.2 % (0.1-2.0); Eosinophils # 0.2 K/mm3 (0.0-0.4); Eosinophils % 2.5 % (0.1-12.0); Hematocrit 46.8 % (37.0-47.0); Hemoglobin 15.1 g/dL (12.2-16.2); Lymphocytes # 2.3 K/mm3 (0.7-4.5); Lymphocytes % 32.4 % (10-50); Mean Corpuscular HGB Conc 32.2 g/dL (31.8-35.4); Mean Corpuscular Hemoglobin 27.3 pg (27.0-31.2); Mean Corpuscular Volume 84.9 fl (81-99); Mean Platelet Volume 8.7 fl (7.4-10.4); Monocytes # 0.4 K/mm3 (0.1-1.0); Monocytes % 5.7 % (1.7-9.3); Neutrophils # 4.1 K/mm3 (1.8-7.8); Neutrophils % 58.2 % (37.0-80.0); Platelet Count 200 K/mm3 (142-424); Red Blood Count 5.51 M/mm3 (4.20-5.40); Red Cell Distribution Width 15.2 % (11.5-17.5)
[2022-08-25 04:33] VITALS: BP 99/52; PULSE 98; O2SAT 93
[2022-08-25 04:36] LABS: Chloride 99 mmol/L (98-107)
[2022-08-25 04:37] LABS: Potassium 4.1 mmoL/L (3.5-5.1); Sodium 137 mmol/L (136-145)
[2022-08-25 04:39] LABS: Alanine Aminotransferase 46 U/L (12-78); Alkaline Phosphatase 153 U/L (38-126); Aspartate Amino Transferase 38 U/L (14-36); Bilirubin,Total 0.7 mg/dl (0.2-1.3); Blood Urea Nitrogen 11 mg/dl (7-17); Creatinine Clearance Estimated 55 mL/min (50-200); Estimated Glomerular Filt Rate 102 ml/min (>60); GFR (African American) 123 ML/MIN (>60); Lactic Acid 1.5 mmol/L (0.7-2.1)
[2022-08-25 04:40] LABS: Albumin/Globulin Ratio 1.1 (1.1-1.8); Anion Gap 13.1 mEq/L (5-15); Calcium 8.8 mg/dl (8.4-10.2); Carbon Dioxide 29 mmol/L (22.0-30.0); Globulin 3.5 g/dL (1.3-3.2); Glucose 324 mg/dl (74-100); Total Protein,Serum 7.5 g/dl (6.3-8.2)
--- NOTE | 2022-08-25 04:46 | CT_ITS ---
PROCEDURE INFORMATION: Exam: CTA Chest With Contrast Exam date and time: 08/25/2022 5:05 AM Age: 62 years old Clinical indication: Shortness of breath; Additional info: SOA TECHNIQUE: Imaging protocol: Computed tomographic angiography of the chest with contrast. 3D rendering (Not supervised by radiologist): MIP and/or 3D reconstructed images were created by the technologist. Radiation optimization: All CT scans at this facility use at least one of these dose optimization techniques: automated exposure control; mA and/or kV adjustment per patient size (includes targeted exams where dose is matched to clinical indication); or iterative reconstruction. Contrast material: ISOVUE; Contrast volume: 70 ml; Contrast route: INTRAVENOUS (IV); COMPARISON: CR Chest 08/25/2022 4:15 AM FINDINGS: Pulmonary arteries: Normal. No pulmonary emboli. Aorta: Unremarkable. No aortic aneurysm. No aortic dissection. Lungs: Some patchy airspace disease is seen in the lungs bilaterally this has a peripheral ground-glass opacity to it. Pleural spaces: Unremarkable. No pneumothorax. No pleural effusion. Heart: Unremarkable. No cardiomegaly. No pericardial effusion. Coronary arteries: There is no coronary artery calcium. Lymph nodes: Some small calcified mediastinal and hilar lymph nodes are present. Gallbladder and bile ducts: Prior cholecystectomy. Bones/joints: Unremarkable. No acute fracture. Soft tissues: Unremarkable. IMPRESSION: 1. No evidence of pulmonary embolism. 2. Peripheral areas of patchy ground-glass opacity. Commonly reported imaging features of COVID-19 pneumonia are present. Other processes such as influenza pneumonia and organizing pneumonia, as can be seen with drug toxicity and connective tissue disease, can cause a similar imaging pattern. (Reference: Edwin) REFERENCES: Edwin Little et al., Radiological Society of [place] Expert Consensus Statement on Reporting Chest CT Findings Related to COVID-19. Endorsed by the Society of Thoracic Radiology, the [place] [employer], and RSNA. Published November 11, 2019.
[2022-08-25 04:48] LABS: NT Pro Brain Natriuretic Pep. 21.9 pg/mL (0-125)
[2022-08-25 04:58] LABS: Troponin I < 0.01 ng/ml (0.00-0.034)
[2022-08-25 04:58] LABS: Coronavirus 19, PCR Detected (NotDetected)
[2022-08-25 05:04] LABS: Acetone, Serum (Rapid) None Detected (None Detect)
[2022-08-25 05:30] VITALS: BP 114/62; PULSE 81; O2SAT 95
[2022-08-25 06:00] VITALS: BP 111/60; PULSE 80; O2SAT 94
--- NOTE | 2022-08-25 06:14 | HMH.EDSOB ---
Discharge Plan Disposition Patient Disposition: Home, Self-Care Prescriptions Prescriptions: New azithromycin [azithromycin] 250 mg tablet 250 mg PO DIRECTED Qty: 6 0RF Rx Instructions: Take two (2) tablets on day #1, then one (1) tablet day #2 thru #5 [id number] [Bromfed DM] 2-30-10 mg/5 mL syrup 7.5 ml PO Q6H PRN (Reason: sinus symptoms) Qty: 473 0RF No Action metformin 1,000 mg tablet PO 30 Days Qty: 60 atorvastatin 40 mg tablet PO 30 Days Qty: 30 potassium chloride 10 mEq tablet extended release PO 30 Days Qty: 30 paroxetine HCl [Paxil] 10 mg tablet 10 mg PO DAILY fluticasone propionate [Allergy Relief (fluticasone)] 50 mcg/actuation spray,suspension 1 spray INTRANASAL DAILY Qty: 15.8 2RF Rx Instructions: administer into each nostril Basaglar KwikPen U-100 Insulin 100 unit/mL (3 mL) insulin pen 30 unit SQ DAILY cholecalciferol (vitamin D3) 5,000 unit capsule 5,000 unit PO DAILY ergocalciferol (vitamin D2) [Vitamin D2] 50,000 unit capsule 50,000 unit PO QWEEK Basaglar KwikPen U-100 Insulin 100 unit/mL (3 mL) insulin pen 20 unit SQ DAILY furosemide 20 MG tablet 20 mg PO DAILY Qty: 3 0RF sulfamethoxazole-trimethoprim 1 EACH tablet 1 each PO BID 10 Days Qty: 40 0RF cephalexin 500 MG tablet 500 mg PO Q6H 10 Days Qty: 40 0RF amoxicillin 875 MG tablet 875 mg PO Q12H Qty: 20 0RF guaifenesin 600 MG tablet extended release 12hr 1 - 2 tab PO BIDP PRN (Reason: Congestion) Qty: 30 0RF phenazopyridine 200 MG tablet 200 pow PO TID Qty: 6 0RF ciprofloxacin HCl 500 MG tablet 500 mg PO BID 7 Days Qty: 14 0RF mupirocin 22 GM ointment 1 applicatio TP TID 7 Days Qty: 1 0RF cefdinir 300 mg capsule 300 mg PO BID 10 Days Qty: 20 0RF phenazopyridine [Pyridium] 200 mg tablet 200 mg PO Q8H 2 Days Qty: 6 0RF cefdinir 300 mg capsule 300 mg PO BID Qty: 20 0RF Referrals Follow up/Referrals: Emmanuel Parra MD [Primary Care Provider] - See instructions Clinical Impressions Clinical Impression: COVID-19 Instructions Patient Instructions: DI for COVID-19 (Suspected or Confirmed ) Discharge ED Provider: Lewis Rai Resp/SOB HPI General Chief Complaint: Shortness of Breath/Dyspnea Stated Complaint: Cough, runny nose, back pain, SOA Time Seen by Provider: 08/25/22 05:00 Mode of Arrival: Wheelchair Source of Information: Patient and Medical Record Limitations: No Limitations Description of Symptoms (Recalled from ER Triage Doc. by RN): pt c/o cough, congestion,SOA body aches, back pain between shoulder blades since august 15 History of Present Illness pt with not feeling well since 08/15/22 and has dev cough over the last few weeks - has had covid-19 vaccine - no hemoptysis Complaint: shortness of breath and cough Onset (ago): day(s) Severity: moderate Known history of: diabetes Associated symptoms: cough Related Data Home oxygen amount: none Home Medications Medication Instructions Recorded Confirmed atorvastatin 40 mg tablet PO 30 days #30 tabs 06/14/18 02/06/21 metformin 1,000 mg tablet PO 30 days #60 tabs 06/14/18 02/06/21 paroxetine HCl 10 mg tablet (Paxil) 10 mg PO DAILY 06/14/18 02/06/21 potassium chloride 10 mEq PO 30 days #30 tabs 06/14/18 02/06/21 tablet,extended release cholecalciferol (vitamin D3) 125 5,000 unit PO DAILY 05/18/19 02/06/21 mcg (5,000 unit) capsule ergocalciferol (vitamin D2) 1,250 50,000 unit PO QWEEK 05/18/19 02/06/21 mcg (50,000 unit) capsule (Vitamin D2) insulin glargine 100 unit/mL (3 20 unit SQ DAILY 05/18/19 02/06/21 mL) subcutaneous pen (Basaglar KwikPen U-100 Insulin) insulin glargine 100 unit/mL (3 30 unit SQ DAILY 05/18/19 02/06/21 mL) subcutaneous pen (Basaglar KwikPen U-100 Insulin) Previous Rx's Medication Instructions Recorded furosemide 20 mg tablet 20 mg PO DAILY
[2022-08-25 06:30] VITALS: BP 109/54; PULSE 85; O2SAT 93
[2022-08-25 06:47] VITALS: BP 109/54; PULSE 85; RESP 20; TEMP 37.1; O2SAT 93
== END 2022-08-25 07:01 | disposition home or self-care (01) ==
PROVIDERS: Emergency Provider Emergency Medicine; PCP Family Medicine
DX: U07.1 COVID-19 (principal); F41.9 Anxiety disorder, unspecified; E11.9 Type 2 diabetes mellitus without complications; E78.5 Hyperlipidemia, unspecified; Z87.440 Personal history of urinary (tract) infections; Z90.49 Acquired absence of other specified parts of digestive tract; Z20.822 Contact with and (suspected) exposure to COVID-19
CPT/HCPCS: 71046; 71275; 80053; 82009; 83605; 83880; 84484; 85025; 87040; 93005; 99285; C9803; Q9967; U0003; U0005

== ENCOUNTER 2022-10-11 17:09 | Emergency (ER) | payer MEDICARE, SELFPAY ==
[2022-10-11 17:31] LABS: Occult Blood,Stool Positive (Negative)
[2022-10-11 17:36] VITALS: BP 157/79; PULSE 125; RESP 20; TEMP 36.8; O2SAT 100; BMI 42.7
[2022-10-11 17:47] LABS: Basophils # 0.1 K/mm3 (0-0.2); Basophils % 0.5 % (0.1-2.0); Eosinophils # 0.1 K/mm3 (0.0-0.4); Eosinophils % 0.8 % (0.1-12.0); Hemoglobin 8.6 g/dL (12.2-16.2); Lymphocytes # 5.5 K/mm3 (0.7-4.5); Lymphocytes % 35.5 % (10-50); Mean Corpuscular HGB Conc 32.9 g/dL (31.8-35.4); Mean Corpuscular Volume 85.1 fl (81-99); Mean Platelet Volume 8.7 fl (7.4-10.4); Monocytes # 0.9 K/mm3 (0.1-1.0); Monocytes % 5.6 % (1.7-9.3); Neutrophils # 8.9 K/mm3 (1.8-7.8); Neutrophils % 57.5 % (37.0-80.0); Platelet Count 344 K/mm3 (142-424); Red Blood Count 3.09 M/mm3 (4.20-5.40); White Blood Count 15.4 K/mm3 (4.8-10.8)
[2022-10-11 17:48] LABS: MANUAL DIFFERENTIAL MANUAL DIFFERENTIAL (MANUAL DIFF)
--- NOTE | 2022-10-11 17:50 | HMH.EDGENADL ---
Discharge Plan Disposition Patient Disposition: Xfer Other Prescriptions Prescriptions: No Action metformin 1,000 mg tablet PO 30 Days Qty: 60 atorvastatin 40 mg tablet PO 30 Days Qty: 30 potassium chloride 10 mEq tablet extended release PO 30 Days Qty: 30 paroxetine HCl [Paxil] 10 mg tablet 10 mg PO DAILY fluticasone propionate [Allergy Relief (fluticasone)] 50 mcg/actuation spray,suspension 1 spray INTRANASAL DAILY Qty: 15.8 2RF Rx Instructions: administer into each nostril Basaglar KwikPen U-100 Insulin 100 unit/mL (3 mL) insulin pen 30 unit SQ DAILY cholecalciferol (vitamin D3) 5,000 unit capsule 5,000 unit PO DAILY ergocalciferol (vitamin D2) [Vitamin D2] 50,000 unit capsule 50,000 unit PO QWEEK Basaglar KwikPen U-100 Insulin 100 unit/mL (3 mL) insulin pen 20 unit SQ DAILY furosemide 20 MG tablet 20 mg PO DAILY Qty: 3 0RF sulfamethoxazole-trimethoprim 1 EACH tablet 1 each PO BID 10 Days Qty: 40 0RF cephalexin 500 MG tablet 500 mg PO Q6H 10 Days Qty: 40 0RF amoxicillin 875 MG tablet 875 mg PO Q12H Qty: 20 0RF guaifenesin 600 MG tablet extended release 12hr 1 - 2 tab PO BIDP PRN (Reason: Congestion) Qty: 30 0RF phenazopyridine 200 MG tablet 200 pow PO TID Qty: 6 0RF ciprofloxacin HCl 500 MG tablet 500 mg PO BID 7 Days Qty: 14 0RF mupirocin 22 GM ointment 1 applicatio TP TID 7 Days Qty: 1 0RF cefdinir 300 mg capsule 300 mg PO BID 10 Days Qty: 20 0RF phenazopyridine [Pyridium] 200 mg tablet 200 mg PO Q8H 2 Days Qty: 6 0RF cefdinir 300 mg capsule 300 mg PO BID Qty: 20 0RF azithromycin [azithromycin] 250 mg tablet 250 mg PO DIRECTED Qty: 6 0RF Rx Instructions: Take two (2) tablets on day #1, then one (1) tablet day #2 thru #5 [id number] [Bromfed DM] 2-30-10 mg/5 mL syrup 7.5 ml PO Q6H PRN (Reason: sinus symptoms) Qty: 473 0RF Referrals Follow up/Referrals: Emmanuel Parra MD [Primary Care Provider] - See instructions Clinical Impressions Clinical Impression: Acute lower GI bleeding, Acute blood loss anemia, Diverticular hemorrhage Instructions Patient Instructions: DI for Acute Abdominal Pain Discharge ED Provider: Sarah Smith General Adult HPI General Chief complaint: Abdominal Pain Stated complaint: weak, blood in stool, diarrhea Time Seen by Provider: 10/11/22 17:50 Mode of Arrival: Ambulatory Source of Information: Patient Limitations: No Limitations Description of Symptoms (Recalled from ER Triage Doc. by RN): Pt c/o 3-4 days lower GI bleed with bilateral abd pain accompanying; reports PMHx Bladder Sling 'Tot' 2021, pelvic floor, tubal, choley, diverticulitis History of Present Illness HPI narrative: Patient is a 62-year-old female presenting with profuse lower GI bleeding for the last 4 days. She has associated dyspnea with exertion and lightheadedness. States that this began with just a sensation to go to the bathroom and subsequently had bloody diarrhea and this has been persistent and on stopping since that time is actually been getting worse she had 6 episodes of this today prior to her emergency department visit and another while she was here. No fevers or chills. No traveling outside of the country. No history of atrial fibrillation or any anticoagulation. States that she does have some diffuse abdominal discomfort nonfocal in nature. She does have a history of diverticulitis in the remote past. Related Data Home Medications Medication Instructions Recorded Confirmed atorvastatin 40 mg tablet PO 30 days #30 tabs 06/14/18 02/06/21 metformin 1,000 mg tablet PO 30 days #60 tabs 06/14/18 02/06/21 paroxetine HCl 10 mg tablet (Paxil) 10 mg PO DAILY 06/14/18 02/06/21 potassium chloride 10 mEq PO 30 days #30 tabs 06/14/18 02/06/21 tablet,extended release cholecalciferol (vitamin D3) 125 5,000 unit PO DAILY 05/18/19
[2022-10-11 17:53] LABS: Chloride 101 mmol/L (98-107); Potassium 3.7 mmoL/L (3.5-5.1); Sodium 131 mmol/L (136-145)
[2022-10-11 17:56] LABS: Alanine Aminotransferase 35 U/L (12-78); Albumin Level 3.3 g/dl (3.5-5.0); Albumin/Globulin Ratio 1.4 (1.1-1.8); Alkaline Phosphatase 109 U/L (38-126); Anion Gap 10.7 mEq/L (5-15); Aspartate Amino Transferase 31 U/L (14-36); Bilirubin,Total 0.4 mg/dl (0.2-1.3); Blood Urea Nitrogen 18 mg/dl (7-17); Calcium 8.2 mg/dl (8.4-10.2); Carbon Dioxide 23 mmol/L (22.0-30.0); Creatinine Clearance Estimated 55 mL/min (50-200); Estimated Glomerular Filt Rate 56 ml/min (>60); GFR (African American) 68 ML/MIN (>60); Globulin 2.4 g/dL (1.3-3.2); Glucose 355 mg/dl (74-100); Total Protein,Serum 5.7 g/dl (6.3-8.2)
[2022-10-11 17:57] LABS: Hematocrit 26.1 % (37.0-47.0)
[2022-10-11 17:58] LABS: INR 1.03 (0.9-1.1); Prothrombin Time 11.1 seconds (10.1-12.5)
--- NOTE | 2022-10-11 17:58 | CT_ITS ---
PROCEDURE INFORMATION: Exam: CTA Abdomen and Pelvis With Contrast Exam date and time: 10/11/2022 6:13 PM Age: 62 years old Clinical indication: Condition or disease; Other: Lower gi bleed; Additional info: Brisk lower gi bleed, hr 130, hgb 15->8 TECHNIQUE: Imaging protocol: Computed tomographic angiography of the abdomen and pelvis with contrast. 3D rendering (Not supervised by radiologist): MIP and/or 3D reconstructed images were created by the technologist. Radiation optimization: All CT scans at this facility use at least one of these dose optimization techniques: automated exposure control; mA and/or kV adjustment per patient size (includes targeted exams where dose is matched to clinical indication); or iterative reconstruction. Contrast material: ISOVUE 370; Contrast volume: 100 ml; Contrast route: INTRAVENOUS (IV); REPORTING DATA: Count of CT and Cardiac NM exams in prior 12 months: This patient has received 2 known CTs and 0 known cardiac nuclear medicine studies in the 12 months prior to the current study. COMPARISON: CT ABDOMEN PELVIS WO CON 05/08/2022 9:40 AM FINDINGS: Aorta: No aortic aneurysm. No aortic dissection. Celiac trunk and mesenteric arteries: The ALVARO is a small-caliber vessel and not well visualized beyond its most proximal portion. Renal arteries: No occlusion or significant stenosis. Right iliac arteries: No occlusion or significant stenosis. Left iliac arteries: No occlusion or significant stenosis. Liver: No mass. Liver is enlarged to 20 cm. Gallbladder and bile ducts: Cholecystectomy. Pancreas: Unremarkable. No mass. No ductal dilation. Spleen: Splenic granulomata. Adrenal glands: Unremarkable. No mass. Kidneys and ureters: Unremarkable. No solid mass. No hydronephrosis. Stomach and bowel: Diverticuli are seen in the colon greatest distally without significant inflammation. No active site of gastrointestinal bleeding is identified on CTA. There is some increased luminal density in the transverse colon on series 5, image 79 possibly blood products. Appendix: No evidence of appendicitis. Intraperitoneal space: Unremarkable. No free air. No significant fluid collection. Lymph nodes: Unremarkable. No enlarged lymph nodes. Urinary bladder: Unremarkable. No mass. Reproductive: Unremarkable as visualized. Bones/joints: No acute fracture. Soft tissues: Small-sized fat containing umbilical hernia. IMPRESSION: 1. No aortic dissection or aneurysm. The celiac and SMA are patent. The ALVARO is a small-caliber vessel and appears patent in its proximal visualized portions. No active source of bleeding identified. 2. Colonic diverticuli are seen without inflammation. There is minimal intraluminal hyperdensity in the mid transverse colon which may be blood products given history. Consider diverticular bleeding clinically.
[2022-10-11 18:00] VITALS: BP 107/65; PULSE 122; O2SAT 100
--- NOTE | 2022-10-11 18:06 | PC.NURSE ---
Radiology notified of need for STAT CT without lab results per Dr. Smith.
--- NOTE | 2022-10-11 18:16 | PC.NURSE ---
Rad transporting pt to scan
[2022-10-11 18:30] VITALS: BP 107/85; PULSE 118; O2SAT 99
[2022-10-11 18:31] LABS: Lactic Acid 2.2 mmol/L (0.7-2.1)
[2022-10-11 18:47] LABS: Coronavirus 19, PCR Not Detected (NotDetected); Influenza A, PCR Not Detected (NotDetected); Influenza B, PCR Not Detected (NotDetected)
[2022-10-11 18:49] LABS: Adenovirus F 40/41, stool Not Detected (NotDetected); Astrovirus Not Detected (NotDetected); Campylobacter Not Detected (NotDetected); Clostridium Difficile A/B, PCR Not Detected (NotDetected); Cryptosporidium Not Detected (NotDetected); Cyclospora Cayetanesis Not Detected (NotDetected); Entamoeba histolytica Not Detected (NotDetected); Enteroaggregative E coli Not Detected (NotDetected); Enterotoxigenic E coli Not Detected (NotDetected); Giardia lamblia Not Detected (NotDetected); Norovirus Not Detected (NotDetected); Plesimonas Shigalloides, PCR Not Detected (NotDetected); Rotavirus A Not Detected (NotDetected); Salmonella, PCR Not Detected (NotDetected); Sapovirus Not Detected (NotDetected); Shiga-like toxin E coli Not Detected (NotDetected); Shigella Enterovasive E coli Not Detected (NotDetected); Vibrio Cholerae Not Detected (NotDetected); Vibrio, PCR Not Detected (NotDetected); Yersinia Entercolitica, PCR Not Detected (NotDetected)
--- NOTE | 2022-10-11 18:54 | PC.NURSE ---
pt went to bathroom via wheelchair. Tolerated well
[2022-10-11 19:00] VITALS: BP 97/52; PULSE 115; O2SAT 98
[2022-10-11 19:03] LABS: Lymphocytes % 34 % (10-50); Monocytes % 11 % (2-9); Neutrophils % 52 % (42-76); Total Cells Counted 100
[2022-10-11 19:05] LABS: Anisocytosis 2+; Hypochromasia 2+; Ovalocytes 1+; Platelet Estimate Slight Increase
--- NOTE | 2022-10-11 19:09 | PC.NURSE ---
re hansel paged
--- NOTE | 2022-10-11 19:17 | PC.NURSE ---
called [facility] to consult er md vocational nurse about pt and sever gi bleed
[2022-10-11 19:31] VITALS: BP 101/66; PULSE 116; O2SAT 99
--- NOTE | 2022-10-11 19:33 | PC.NURSE ---
called [facility] they will call back
[2022-10-11 19:39] LABS: Basophils # 0.1 K/mm3 (0-0.2); Basophils % 0.6 % (0.1-2.0); Eosinophils # 0.2 K/mm3 (0.0-0.4); Eosinophils % 1.5 % (0.1-12.0); Hematocrit 22.9 % (37.0-47.0); Lymphocytes # 4.4 K/mm3 (0.7-4.5); Lymphocytes % 31.6 % (10-50); Mean Corpuscular HGB Conc 31.6 g/dL (31.8-35.4); Mean Corpuscular Hemoglobin 27.1 pg (27.0-31.2); Mean Corpuscular Volume 85.7 fl (81-99); Monocytes # 0.8 K/mm3 (0.1-1.0); Monocytes % 5.9 % (1.7-9.3); Neutrophils # 8.4 K/mm3 (1.8-7.8); Neutrophils % 60.4 % (37.0-80.0); Platelet Count 265 K/mm3 (142-424); Red Blood Count 2.67 M/mm3 (4.20-5.40); Red Cell Distribution Width 16.1 % (11.5-17.5); White Blood Count 13.8 K/mm3 (4.8-10.8)
[2022-10-11 19:45] LABS: Hemoglobin 7.2 g/dL (12.2-16.2)
--- NOTE | 2022-10-11 19:59 | PC.NURSE ---
DESIRAE KAY speaking with Dr. Abarca at this time
--- NOTE | 2022-10-11 20:04 | PC.NURSE ---
ER MD spoke with Hospitalist at [facility] ER MD waiting on IR to call back
--- NOTE | 2022-10-11 20:09 | PC.NURSE ---
DR JACKSON WITH IR RETURNED CALL AT THIS TIME.
--- NOTE | 2022-10-11 20:32 | PC.NURSE ---
FAXED FACESHEET TO [facility]
--- NOTE | 2022-10-11 20:34 | PC.NURSE ---
ACCEPTED TO [facility] COURTESY OF DR ORTA CERTIFIED ALCOHOL AND DRUG COUNSELOR.
--- NOTE | 2022-10-11 20:42 | PC.NURSE ---
CALL RETURNED ASKING FOR SSN (WHICH DOESN'T POPULATE ON OUR FACESHEET). GIVEN TO [facility] AT [facility]
[2022-10-11 20:48] LABS: Enteropathogenic E coli Detected (NotDetected)
--- NOTE | 2022-10-11 21:21 | PC.NURSE ---
CALL FROM [facility], 10 MINS ETA.PT AND FAMILY UPDATED
[2022-10-11 21:41] VITALS: BP 103/53; PULSE 111; RESP 19; TEMP 36.6; O2SAT 98
== END 2022-10-11 21:49 | disposition other institution (70) ==
PROVIDERS: Emergency Provider Student in an Organized Health Care Education/Training Program; PCP Family Medicine
DX: K92.2 Gastrointestinal hemorrhage, unspecified (principal); D64.9 Anemia, unspecified; F41.9 Anxiety disorder, unspecified; E11.9 Type 2 diabetes mellitus without complications; E78.5 Hyperlipidemia, unspecified; Z87.440 Personal history of urinary (tract) infections; Z90.49 Acquired absence of other specified parts of digestive tract; Z20.822 Contact with and (suspected) exposure to COVID-19
CPT/HCPCS: 74174; 80053; 82272; 83605; 85007; 85025; 85610; 86850; 87506; 96361; 96374; 96375; 99291; C9803; G0328; G0390; J2405; Q9967; U0003; U0005

== ENCOUNTER 2023-03-20 11:33 | Emergency (ER) | payer MEDICARE, SELFPAY ==
--- NOTE | 2023-03-20 11:52 | EXP.UTC ---
Discharge Plan Disposition Patient Disposition: Home, Self-Care Condition: Good Prescriptions Prescriptions: New sulfamethoxazole-trimethoprim [Bactrim DS] 800-160 mg Tablet 1 tab PO BID Qty: 20 0RF cephalexin 500 mg capsule 500 mg PO QID Qty: 40 0RF mupirocin 2 % ointment 1 applic topical TID 7 Days Qty: 15 0RF No Action metformin 1,000 mg tablet 1,000 mg PO DAILY 30 Days Qty: 60 atorvastatin 40 mg tablet 40 mg PO DAILY 30 Days Qty: 30 paroxetine HCl [Paxil] 10 mg tablet 10 mg PO DAILY Basaglar KwikPen U-100 Insulin 100 unit/mL (3 mL) insulin pen 30 unit SQ DAILY cholecalciferol (vitamin D3) 5,000 unit capsule 5,000 unit PO DAILY ergocalciferol (vitamin D2) [Vitamin D2] 50,000 unit capsule 50,000 unit PO QWEEK Basaglar KwikPen U-100 Insulin 100 unit/mL (3 mL) insulin pen 20 unit SQ DAILY furosemide 20 MG tablet 20 mg PO DAILY Referrals Follow up/Referrals: Provider,Referral, MD [Primary Care Provider] - See instructions Activity Restrictions/Add. Instructions Additional Instructions/Restrictions: Keep the affected area clean and dry. Follow up with your regular doctor. Take the antibiotics as directed and apply the topical antibiotics as directed. Apply warm wet compresses to the affected area three or four times per day. GO TO THE ER FOR ANY WORSENING SYMPTOMS Clinical Impressions Clinical Impression: Cellulitis and abscess of face Instructions Patient Instructions: Mupirocin, DI for Skin Abscess Discharge ED Provider: [facility] General Stated complaint: rash around mouth, left side jaw pain Time Seen by Provider: 03/20/23 11:49 History of Present Illness Provider Complaint: She states that for the past 5 days she has had several itchy crusted lesions to appear on her face on her chin. She denies lesions elsewhere. She denies any fever, chills, or malaise. Related Data Home Medications Medication Instructions Recorded Confirmed atorvastatin 40 mg tablet 40 mg PO DAILY Cholesterol 30 days 06/14/18 03/20/23 #30 tabs metformin 1,000 mg tablet 1,000 mg PO DAILY DM 30 days #60 06/14/18 03/20/23 tabs paroxetine HCl 10 mg tablet (Paxil) 10 mg PO DAILY Depression 06/14/18 03/20/23 cholecalciferol (vitamin D3) 125 5,000 unit PO DAILY Supplement 05/18/19 03/20/23 mcg (5,000 unit) capsule ergocalciferol (vitamin D2) 1,250 50,000 unit PO QWEEK Supplement 05/18/19 03/20/23 mcg (50,000 unit) capsule (Vitamin D2) insulin glargine 100 unit/mL (3 20 unit SQ DAILY DM 05/18/19 03/20/23 mL) subcutaneous pen (Basaglar KwikPen U-100 Insulin) insulin glargine 100 unit/mL (3 30 unit SQ DAILY DM 05/18/19 03/20/23 mL) subcutaneous pen (Basaglar KwikPen U-100 Insulin) furosemide 20 mg tablet 20 mg PO DAILY Edema 03/20/23 03/20/23 Previous Rx's Medication Instructions Recorded cephalexin 500 mg capsule 500 mg PO QID #40 caps 03/20/23 mupirocin 2 % topical ointment 1 applic topical TID 7 days #15 03/20/23 grams sulfamethoxazole 800 1 tab PO BID #20 tabs 03/20/23 mg-trimethoprim 160 mg tablet (Bactrim DS) Allergies Allergy/AdvReac Type Severity Reaction Status Date / Time hydromorphone [From DILAUDID] Allergy Unknown MAKES HER Verified 03/20/23 11:56 FEEL LIKE SOMETHING CRAWLING ON HER SKIN meperidine [MEPERIDINE] Allergy Unknown NA-NAUSEA/V Verified 03/20/23 11:56 OMITING PFSH PFSH Disclaimer: The information contained in this section may have been updated after the patient was seen, as this information can be updated by other users. Medical History Anxiety Diabetes mellitus, type 2 Erosion of transobturator mid-urethral sling History of heart attack Hyperlipidemia Urinary tract infection Surgical History H/O tubal ligation History of cholec
[2023-03-20 11:59] VITALS: BP 136/63; PULSE 106; RESP 20; TEMP 36.8; O2SAT 94; BMI 42.7
[2023-03-20 12:30] VITALS: BP 136/63; PULSE 106; RESP 20; TEMP 36.8
== END 2023-03-20 12:31 | disposition home or self-care (01) ==
PROVIDERS: Emergency Provider Nurse Practitioner Family
DX: L02.01 Cutaneous abscess of face (principal); L03.211 Cellulitis of face; E11.9 Type 2 diabetes mellitus without complications; E78.5 Hyperlipidemia, unspecified; F41.9 Anxiety disorder, unspecified; Z79.4 Long term (current) use of insulin
CPT/HCPCS: 99212; 99214; G0463

== ENCOUNTER 2023-05-06 02:29 | Emergency (ER) | payer MEDICARE, SELFPAY ==
[2023-05-06 02:31] VITALS: BP 149/73; PULSE 115; RESP 22; TEMP 36.5; O2SAT 97; BMI 42.7
--- NOTE | 2023-05-06 02:36 | PC.NURSE ---
in room talking with patient at this time.
[2023-05-06 02:38] VITALS: BP 149/73; PULSE 110; O2SAT 97
--- NOTE | 2023-05-06 02:44 | HMH.EDGENADL ---
Discharge Plan Disposition Patient Disposition: Home, Self-Care Condition: Good Prescriptions Prescriptions: New methocarbamol 500 mg tablet 500 mg PO Q8H Qty: 21 0RF lidocaine [DermacinRx Lidocan] 5 % adhesive patch,medicated 1 patch topical DAILY Qty: 5 0RF Rx Instructions: leave on most painful area for up to 12 hrs No Action metformin 1,000 mg tablet 1,000 mg PO DAILY 30 Days Qty: 60 atorvastatin 40 mg tablet 40 mg PO DAILY 30 Days Qty: 30 paroxetine HCl [Paxil] 10 mg tablet 10 mg PO DAILY Basaglar KwikPen U-100 Insulin 100 unit/mL (3 mL) insulin pen 30 unit SQ DAILY cholecalciferol (vitamin D3) 5,000 unit capsule 5,000 unit PO DAILY ergocalciferol (vitamin D2) [Vitamin D2] 50,000 unit capsule 50,000 unit PO QWEEK Basaglar KwikPen U-100 Insulin 100 unit/mL (3 mL) insulin pen 20 unit SQ DAILY furosemide 20 MG tablet 20 mg PO DAILY sulfamethoxazole-trimethoprim [Bactrim DS] 800-160 mg Tablet 1 tab PO BID Qty: 20 0RF cephalexin 500 mg capsule 500 mg PO QID Qty: 40 0RF mupirocin 2 % ointment 1 applic topical TID 7 Days Qty: 15 0RF Referrals Follow up/Referrals: Emmanuel Parra MD [Primary Care Provider] - See instructions Activity Restrictions/Add. Instructions Additional Instructions/Restrictions: I believe you are having sciatica radiculopathy pain. Take the newly prescribed methocarbamol as directed. Apply the lidocaine patches as directed. Follow-up with your primary care physician in a few days for reevaluation. Call the orthopedic office and try to get an earlier appointment for reevaluation and possibly additional imaging of the back. Rest and avoid activities that cause pain. Return to the emergency department with any new, worsening, or concerning symptoms. Clinical Impressions Clinical Impression: Acute left-sided low back pain with left-sided sciatica Instructions Patient Instructions: DI for Low Back Pain Discharge ED Provider: [facility] General Adult HPI General Chief complaint: Back Pain/Injury Stated complaint: Left side back pain radiating down leg Time Seen by Provider: 05/06/23 02:43 History of Present Illness HPI narrative: This 63-year-old female presents to the emergency department with concerns of left-sided low back pain radiating down the left leg. Patient states last night she was using her walker while doing dishes and reached up above her head. She felt a small pull in her back but did not notice obvious pain yet. She states through the evening it progressed and she became more uncomfortable. She states that she has not been able to get any sleep and is unable to find a comfortable position. She states the pain radiates down the left leg all the way into her calf. She denies any history of pain like this in the past. Patient does have history of arthritis and takes meloxicam daily. Patient denies bowel or bladder incontinence. She denies numbness, tingling, or weakness. Related Data Home Medications Medication Instructions Recorded Confirmed atorvastatin 40 mg tablet 40 mg PO DAILY Cholesterol 30 days 06/14/18 03/20/23 #30 tabs metformin 1,000 mg tablet 1,000 mg PO DAILY DM 30 days #60 06/14/18 03/20/23 tabs paroxetine HCl 10 mg tablet (Paxil) 10 mg PO DAILY Depression 06/14/18 03/20/23 cholecalciferol (vitamin D3) 125 5,000 unit PO DAILY Supplement 05/18/19 03/20/23 mcg (5,000 unit) capsule ergocalciferol (vitamin D2) 1,250 50,000 unit PO QWEEK Supplement 05/18/19 03/20/23 mcg (50,000 unit) capsule (Vitamin D2) insulin glargine 100 unit/mL (3 20 unit SQ DAILY DM 05/18/19 03/20/23 mL) subcutaneous pen (Basaglar KwikPen U-100 Insulin) insulin glargine 100 unit/mL (3 30 unit SQ DAILY DM 05/18/19 03/20/23 mL) subcutaneous pen (Basaglar KwikPen U-100 Insulin) furosemide 20 mg tablet 20 mg PO DAILY Edema 03/20/23 03/20/23 Previous Rx's Medicati
--- NOTE | 2023-05-06 03:10 | PC.NURSE ---
Attempted bladder scan post void, unable to obtain after multiple tries, provider aware
[2023-05-06 03:55] VITALS: BP 134/75; PULSE 97; RESP 20; TEMP 36.5; O2SAT 97
== END 2023-05-06 03:58 | disposition home or self-care (01) ==
PROVIDERS: Emergency Provider Emergency Medicine; PCP Family Medicine
DX: M54.42 Lumbago with sciatica, left side (principal); F41.9 Anxiety disorder, unspecified; E11.9 Type 2 diabetes mellitus without complications; I25.2 Old myocardial infarction; E78.5 Hyperlipidemia, unspecified
CPT/HCPCS: 99284

== ENCOUNTER 2024-03-08 11:45 | Emergency (ER) | payer MEDICARE, SELFPAY ==
[2024-03-08] VITALS (9 sets, daily range): BP systolic 106–148; BP diastolic 48–89; PULSE 86–106; RESP 18; TEMP 36.6–36.7; O2SAT 95–97; BMI 43.0
--- NOTE | 2024-03-08 11:49 | ECG_ITS ---
APPROVED REPORT Exam: Resting ECG HR:102 bpm ECG Measurements Heart Rate 102 AXES ID 156 P 52 QRSd 90 QRS 47 QT 342 T 59 QTc 400 Conclusion SINUS TACHYCARDIA ABNORMAL RHYTHM ECG Electronically signed by : TAMMI HERNANDEZ, 03/08/2024 14:18:11
--- NOTE | 2024-03-08 11:54 | CT_ITS ---
PROCEDURE INFORMATION: Exam: CTA Left Upper Extremity With Contrast Exam date and time: 03/08/2024 1:01 PM Age: 64 years old Clinical indication: Numbness; Arm, lower and arm, upper; Left; Additional info: L arm numbness/tingling/pain TECHNIQUE: Imaging protocol: Computed tomographic angiography of the left upper extremity with contrast, including non-contrast images if performed. 3D rendering (Not supervised by radiologist): MIP and/or 3D reconstructed images were created by the technologist. Radiation optimization: All CT scans at this facility use at least one of these dose optimization techniques: automated exposure control; mA and/or kV adjustment per patient size (includes targeted exams where dose is matched to clinical indication); or iterative reconstruction. Contrast material: ISO 370; Contrast volume: 90 ml; Contrast route: INTRAVENOUS (IV); COMPARISON: CT ANGIO CHEST 03/08/2024 12:53 PM FINDINGS: Left subclavian artery: Not visualized in its entirety. No acute findings. No occlusion or significant stenosis. Axillary artery: No acute findings. No occlusion or significant stenosis. Brachial artery: No acute findings. No occlusion or significant stenosis. Radial artery: Limited distally due to patient motion. No acute findings. No occlusion or significant stenosis. Ulnar artery: Limited distally due to patient motion. No acute findings. No occlusion or significant stenosis. Bones/joints: No acute fracture. No dislocation. Degenerative changes in the cervical spine. Soft tissues: Unremarkable. No abnormal contrast enhancement. IMPRESSION: No acute abnormality.
--- NOTE | 2024-03-08 11:54 | CT_ITS ---
PROCEDURE INFORMATION: Exam: CT Head Without Contrast Exam date and time: 03/08/2024 12:38 PM Age: 64 years old Clinical indication: Numbness / parasthesia; Additional info: L arm numbness/tingling TECHNIQUE: Imaging protocol: Computed tomography of the head without contrast. Radiation optimization: All CT scans at this facility use at least one of these dose optimization techniques: automated exposure control; mA and/or kV adjustment per patient size (includes targeted exams where dose is matched to clinical indication); or iterative reconstruction. COMPARISON: CT ANGIO HEAD 03/08/2024 12:38 PM FINDINGS: Brain: No intracranial hemorrhage. No evidence of acute territorial infarct or cerebral edema. Mild prominence of the cortical sulci consistent with age-appropriate intracerebral volume loss. Periventricular white matter tract changes consistent with microvascular disease. No mass effect or midline shift. Cerebral ventricles: No ventriculomegaly. Paranasal sinuses: Visualized sinuses are unremarkable. No fluid levels. Mastoid air cells: Visualized mastoid air cells are well aerated. Bones: Unremarkable. No acute fracture. Soft tissues: Unremarkable. IMPRESSION: No evidence of acute intracranial abnormality.
--- NOTE | 2024-03-08 11:54 | CT_ITS ---
PROCEDURE INFORMATION: Exam: CTA Neck With Contrast Exam date and time: 03/08/2024 12:38 PM Age: 64 years old Clinical indication: Numbness; Additional info: L arm numbness/tingling TECHNIQUE: Imaging protocol: Computed tomographic angiography of the neck with contrast. Exam focused on the cervical segments of the vasculature. 3D rendering (Not supervised by radiologist): MIP and/or 3D reconstructed images were created by the technologist. Radiation optimization: All CT scans at this facility use at least one of these dose optimization techniques: automated exposure control; mA and/or kV adjustment per patient size (includes targeted exams where dose is matched to clinical indication); or iterative reconstruction. Contrast material: ISO 370; Contrast volume: 100 ml; Contrast route: INTRAVENOUS (IV); COMPARISON: CT ANGIO HEAD 03/08/2024 12:38 PM FINDINGS: Right common carotid artery: No stenosis. No dissection or occlusion. Right internal carotid artery: No stenosis of the extracranial segment. No dissection or occlusion. Calcified plaque causes less than 50% stenosis. Right external carotid artery: No occlusion or stenosis of the origin. Left common carotid artery: No stenosis. No dissection or occlusion. Left internal carotid artery: No stenosis of the extracranial segment. No dissection or occlusion. Calcified plaque causes less than 50% stenosis. Left external carotid artery: No occlusion or stenosis of the origin. Right vertebral artery: No stenosis. No dissection or occlusion. Left vertebral artery: No stenosis. No dissection or occlusion. Aortic arch origin. Soft tissues: No masses or edema. Bones/joints: No acute fracture, subluxations, or bone lesions. IMPRESSION: No arterial stenosis or occlusion in the neck. REFERENCES: NASCET CRITERIA. The degree of stenosis in the cervical segment of the internal carotid artery is based on NASCET criteria. Normal is no stenosis. Mild is less than 50% stenosis. Moderate is 50-69% stenosis. Severe is 70% to 99% stenosis. Total occlusion is no detectable patent lumen.
--- NOTE | 2024-03-08 11:54 | CT_ITS ---
PROCEDURE INFORMATION: Exam: CTA Chest With Contrast Exam date and time: 03/08/2024 12:53 PM Age: 64 years old Clinical indication: Other: Left arm tingling; Additional info: L arm numbness/tingling TECHNIQUE: Imaging protocol: Computed tomographic angiography of the chest with contrast. Exam focused on the arteries. 3D rendering (Not supervised by radiologist): MIP and/or 3D reconstructed images were created by the technologist. Radiation optimization: All CT scans at this facility use at least one of these dose optimization techniques: automated exposure control; mA and/or kV adjustment per patient size (includes targeted exams where dose is matched to clinical indication); or iterative reconstruction. Contrast material: ISO 370; Contrast volume: 90 ml; Contrast route: INTRAVENOUS (IV); COMPARISON: CT ANGIO CHEST PE PROTOCOL 08/25/2022 5:05 AM FINDINGS: Pulmonary arteries: Suboptimal opacification of the pulmonary arteries limiting the sensitivity of this examination. No gross central filling defects are identified. Aorta: Negative for aortic aneurysm or dissection. Lungs: Stable sub 5 mm pulmonary nodules evident on the right, measuring 3 mm (series 8, image 26) and 3 mm (series 8 image 44). No focal consolidation. Pleural spaces: Unremarkable. No pneumothorax. No pleural effusion. Heart: Unremarkable. No cardiomegaly. No pericardial effusion. Lymph nodes: Unremarkable. No enlarged lymph nodes. Bones/joints: Unremarkable. No acute fracture. Soft tissues: Unremarkable. IMPRESSION: 1. Suboptimal opacification of the pulmonary arteries limiting the sensitivity of this examination. No gross central filling defects are identified. 2. Negative for aortic aneurysm or dissection. 3. Stable sub 5 mm pulmonary nodules as detailed above.
--- NOTE | 2024-03-08 11:54 | CT_ITS ---
PROCEDURE INFORMATION: Exam: CTA Head With Contrast, Arteriography Exam date and time: 03/08/2024 12:38 PM Age: 64 years old Clinical indication: Numbness; Additional info: L arm numbness/tingling TECHNIQUE: Imaging protocol: Computed tomographic angiography of the head with contrast. Exam focused on the arteries. 3D rendering (Not supervised by radiologist): MIP and/or 3D reconstructed images were created by the technologist. Radiation optimization: All CT scans at this facility use at least one of these dose optimization techniques: automated exposure control; mA and/or kV adjustment per patient size (includes targeted exams where dose is matched to clinical indication); or iterative reconstruction. Contrast material: ISO 370; Contrast volume: 100 ml; Contrast route: INTRAVENOUS (IV); COMPARISON: CT HEAD/BRAIN WO CON 03/08/2024 12:38 PM FINDINGS: ANTERIOR CIRCULATION: Right internal carotid artery: Intracranial segment is patent with no significant stenosis. No aneurysm. Right middle cerebral artery: No occlusion or significant stenosis. No aneurysm. Right anterior cerebral artery: No occlusion or significant stenosis. No aneurysm. Left internal carotid artery: Intracranial segment is patent with no significant stenosis. No aneurysm. Left middle cerebral artery: No occlusion or significant stenosis. No aneurysm. Left anterior cerebral artery: No occlusion or significant stenosis. No aneurysm. POSTERIOR CIRCULATION: Right vertebral artery: No occlusion or significant stenosis. No aneurysm. Left vertebral artery: No occlusion or significant stenosis. No aneurysm. Basilar artery: No occlusion or significant stenosis. No aneurysm. Right posterior cerebral artery: No occlusion or significant stenosis. No aneurysm. Left posterior cerebral artery: No occlusion or significant stenosis. No aneurysm. Brain: No definite mass, mass effect, or midline shift. Cerebral ventricles: No ventriculomegaly. Bones/joints: No acute fracture or focal bone lesions. Soft tissues: No masses or swelling. IMPRESSION: No large vessel occlusion. No acute intracranial abnormalities.
--- NOTE | 2024-03-08 11:56 | CT_ITS ---
PROCEDURE INFORMATION: Exam: CT Cervical Spine Without Contrast Exam date and time: 03/08/2024 1:04 PM Age: 64 years old Clinical indication: Pain; Additional info: L arm sensory deficits TECHNIQUE: Imaging protocol: Computed tomography of the cervical spine without contrast. Radiation optimization: All CT scans at this facility use at least one of these dose optimization techniques: automated exposure control; mA and/or kV adjustment per patient size (includes targeted exams where dose is matched to clinical indication); or iterative reconstruction. COMPARISON: CT ANGIO NECK 03/08/2024 12:38 PM FINDINGS: Bones: InCervical spondylosis with multilevel disc degeneration. Mild-moderate left C4-C5 and 5 6 neural foraminal stenosis. Findings not optimally visualized secondary to scan design. Lungs: Lung apices are normal. Soft tissues: Unremarkable. IMPRESSION: 1. Mild-moderate left C4-C5 and C5-C6 neural foraminal stenosis. Findings not optimally visualized secondary to scan design. 2. No evidence of acute osseous injury.
[2024-03-08 12:04] LABS: Basophils # 0.1 K/mm3 (0-0.2); Eosinophils # 0.3 K/mm3 (0.0-0.4); Hematocrit 46.7 % (37.0-47.0); Lymphocytes # 3.2 K/mm3 (0.7-4.5); Lymphocytes % 30.8 % (10-50); Mean Corpuscular HGB Conc 32.1 g/dL (31.8-35.4); Mean Corpuscular Hemoglobin 28.5 pg (27.0-31.2); Mean Corpuscular Volume 88.8 fl (81-99); Mean Platelet Volume 8.9 fl (7.4-10.4); Monocytes # 0.7 K/mm3 (0.1-1.0); Monocytes % 6.5 % (1.7-9.3); Neutrophils # 6.2 K/mm3 (1.8-7.8); Neutrophils % 58.7 % (37.0-80.0); Platelet Count 257 K/mm3 (142-424); Red Blood Count 5.26 M/mm3 (4.20-5.40); Red Cell Distribution Width 15.3 % (11.5-17.5); White Blood Count 10.5 K/mm3 (4.8-10.8)
--- NOTE | 2024-03-08 12:08 | HMH.EDGENADL ---
Discharge Plan Disposition Patient Disposition: Home, Self-Care Condition: Good Prescriptions Prescriptions: New naproxen 500 mg tablet 500 mg PO BID Qty: 20 0RF No Action metformin 1,000 mg tablet 1,000 mg PO DAILY 30 Days Qty: 60 atorvastatin 40 mg tablet 40 mg PO DAILY 30 Days Qty: 30 paroxetine HCl [Paxil] 10 mg tablet 10 mg PO DAILY Basaglar KwikPen U-100 Insulin 100 unit/mL (3 mL) insulin pen 30 unit SQ DAILY cholecalciferol (vitamin D3) 5,000 unit capsule 5,000 unit PO DAILY ergocalciferol (vitamin D2) [Vitamin D2] 50,000 unit capsule 50,000 unit PO QWEEK Basaglar KwikPen U-100 Insulin 100 unit/mL (3 mL) insulin pen 20 unit SQ DAILY furosemide 20 MG tablet 20 mg PO DAILY sulfamethoxazole-trimethoprim [Bactrim DS] 800-160 mg Tablet 1 tab PO BID Qty: 20 0RF cephalexin 500 mg capsule 500 mg PO QID Qty: 40 0RF mupirocin 2 % ointment 1 applic topical TID 7 Days Qty: 15 0RF methocarbamol 500 mg tablet 500 mg PO Q8H Qty: 21 0RF lidocaine [DermacinRx Lidocan] 5 % adhesive patch,medicated 1 patch topical DAILY Qty: 5 0RF Rx Instructions: leave on most painful area for up to 12 hrs Referrals Follow up/Referrals: Shukri Landa DO [Staff Physician] - See instructions Provider,Referral, [Referring] - See instructions Activity Restrictions/Add. Instructions Additional Instructions/Restrictions: You were evaluated in the emergency department today. Your left hand numbness could be coming from either compression of the nerve in your arm versus compression at the level of your neck. Please follow-up closely with your primary care provider. I have also provided you with information for orthopedics to if you would like to get his opinion as well. He may benefit from referral to a neurologist, which her primary care provider can refer you to. 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 Return to the emergency department for new or worsening symptoms. Clinical Impressions Clinical Impression: Numbness and tingling in left hand, Arm pain, left, Stenosis of cervical spine region Instructions Patient Instructions: DI for Cervical Radiculopathy, DI for Peripheral Neuropathy Discharge ED Provider: Lila Orta General Adult HPI General Chief complaint: PAIN Stated complaint: poss stroke Time Seen by Provider: 03/08/24 11:54 Mode of Arrival: Wheelchair Source of Information: Patient Limitations: No Limitations Description of Symptoms (Recalled from ER Triage Doc. by RN): pt presents to ED with c/o left hand and arm numbness and tingiling. pt reports symptoms began on but has gradually gotten worse. History of Present Illness HPI narrative: This patient is a 64-year-old female with a history of type 2 diabetes, prior [place], hyperlipidemia, and anxiety presenting to the emergency department for evaluation with concern for left hand and arm pain, numbness, and tingling. Symptoms started on 03/05/2024. Patient states that she first noticed symptoms when she woke up and feels like she has pain in her left upper arm just above her antecubital fossa and experiences numbness and tingling on the ulnar aspect of her left forearm radiating into her left pinky. No known injuries. She denies sleeping on it funny, stating that it was rested across her abdomen. No redness, warmth, skin color changes. She also denies any other neurologic symptoms such as visual disturbance, other numbness or tingling, discoordination, focal weakness, balance issues, gait issues, or other concerns. Her symptoms are gradually gotten worse, prompting her to come in today. She states that it feels like her left upper arm is going to explode. Related Data Home Medications Medication Instructions Recorded Confirmed atorvastatin 40 mg tablet 40 mg PO DAILY Cholesterol 30 days 06/14/18 03/20/23 #30 tabs metformin 1,000 mg tablet 1,000 mg PO DAILY DM 30 days #60 06/14/18 03/20/23 tabs paroxetine HCl 10 mg tablet (Paxil) 10 mg PO DAILY Depression 06/14/18 03/20/23 cholecalciferol (vitamin D3) 125 5,000 unit PO DAILY Supplement 05/18/19 03/20/23 mcg (5,000 unit) capsule ergocalciferol (vitamin D2) 1,250 50,000 unit PO QWEEK Supplement 05/18/19 03/20/23 mcg (50,000 unit) capsule (Vitamin D2) insulin glargine 100 unit/mL (3 20 unit SQ DAILY DM 05/18/19 03/20/23 mL) subcutaneous pen (Basaglar KwikPen U-100 Insulin) insulin glargine 100 unit/mL (3 30 unit SQ DAILY DM 05/18/19 03/20/23 mL) subcutaneous pen (Basaglar KwikPen U-100 Insulin) furosemide 20 mg tablet 20 mg PO DAILY Edema 03/20/23 03/20/23 Previous Rx's Medication Instructions Recorded cephalexin 500 mg capsule 500 mg PO QID #40 caps 03/20/23 mupirocin 2 % topical ointment 1 applic topical TID 7 days #15 03/20/23 grams sulfamethoxazole 800 1 tab PO BID #20 tabs 03/20/23 mg-trimethoprim 160 mg tablet (Bactrim DS) lidocaine 5 % topical patch 1 patch topical DAILY #5 ea 05/06/23 (DermacinRx Lidocan) methocarbamol 500 mg tablet 500 mg PO Q8H #21 tabs 05/06/23 naproxen 500 mg tablet 500 mg PO BID #20 tabs 03/08/24 Allergies Allergy/AdvReac Type Severity Reaction Status Date / Time hydromorphone [From DILAUDID] Allergy Unknown MAKES HER Verified 03/20/23 11:56 FEEL LIKE SOMETHING CRAWLING ON HER SKIN meperidine [MEPERIDINE] Allergy Unknown NA-NAUSEA/V Verified 03/20/23 11:56 OMITING PFSH PFSH Disclaimer: The information contained in this section may have been updated after the patient was seen, as this information can be updated by other users. Medical History Erosion of transobturator mid-urethral sling History of heart attack Anxiety Urinary tract infection Diabetes mellitus, type 2 Hyperlipidemia Surgical History H/O tubal ligation History of cholecystectomy Social History Smoking Status: Never smoker alcohol intake: never current occupational status: other Travel in the last 8 weeks: None ROS Obtained: Yes All systems reviewed & no additional complaints except as documented Physical Exam General General appearance: alert, in no apparent distress, anxious and obese Head Head exam: atraumatic and normocephalic Eye Eye exam: Present normal appearance, PERRL and EOMI ENT ENT exam: Present normal exam, normal oropharynx, mucous membranes moist and normal external ear exam Neck Neck exam: Present normal inspection, full ROM and trachea midline; Absent tenderness Chest Chest inspection: Present normal inspection and symmetric chest wall rise; Absent tenderness Respiratory Respiratory exam: Present normal lung sounds bilaterally; Absent respiratory distress, wheezes, stridor or accessory muscle use Cardiovascular Cardiovascular exam: Present regular rate and normal rhythm Abdominal Exam Abdominal exam: Present soft; Absent distention, tenderness or guarding Extremities Exam Extremities exam: Present full ROM, tenderness (Tenderness to palpation of the left upper arm just above the AC fossa without obvious redness, warmth, swelling, or deformity.), normal capillary refill and other (Tenderness to palpation of the left upper arm as above. No obvious skin changes or other concerns. She has a subjective decrease in sensation on the ulnar aspect of the L hand and forearm in the C8 distribution. Diminished L hand nut threader strength with limited opposition of L thumb); Absent edema Back Exam Back exam: Present normal inspection and full ROM; Absent tenderness Neurological Exam Neurological exam: Present alert, oriented X3, CN II-XII intact and motor sensory deficit (Subjective decrease in sensation on the ulnar aspect of the left mid forearm into the left pinky. No other motor or sensory deficits on exam. Diminished L hand nut threader strength with limited opposition of L thumb) Expanded Neurological Exam Patient oriented to: Present person, place and time Speech: Present fluid speech Cranial nerves: Normal: EOM function (II, III, IV, ), facial sensation (V), facial palsy (VII), spinal accessory function (XI) and tongue deviation (XII) Cerebellar function: Normal: finger to nose and heel to brink Motor strength - LUE: 4/5 Motor strength - RUE: 5/5 Motor strength - LLE: 5/5 Motor strength - RLE: 5/5 Upper motor neuron exam: Normal: fabio neglect Sensory exam upper extremity: Abnormal Left: light touch (C8 distribution) Sensory exam lower extremity: Normal: light touch Coma scale eye opening: Spontaneous Coma scale motor response: Obeys commands Coma scale verbal response: Oriented Coma scale total: 15 Psychiatric Psychiatric exam: Present anxious Skin Skin exam: Present warm and dry Medical Decision Making Medical Records Medical records reviewed: Yes I reviewed the patient's medical records. Arnold Inquiry Pt receiving controlled substance: No Vital Signs: 03/08/24 11:46 03/08/24 11:47 03/08/24 12:01 Temperature 98.1 F Temperature Source Oral Pulse Rate 103 H 93 H Pulse Rate [Left Radial] 106 H Respiratory Rate 18 Blood Pressure 140/80 107/60 L Blood Pressure [Right Arm] 148/80 H Blood Pressure Mean [Right Arm] 102 02 Sat by Pulse Oximetry 97 96 95 Oxygen Delivery Method Room Air 03/08/24 13:16 03/08/24 13:30 03/08/24 14:01 Temperature Temperature Source Pulse Rate 98 H 93 H 88 Pulse Rate [Left Radial] Respiratory Rate Blood Pressure 126/70 109/89 L 109/60 L Blood Pressure [Right Arm] Blood Pressure Mean [Right Arm] 02 Sat by Pulse Oximetry 97 96 96 Oxygen Delivery Method Lab Data Lab results reviewed: Yes I reviewed the patient's lab results. Lab Results 03/08/24 11:47: WBC 10.5, RBC 5.26, Hgb 15.0, Hct 46.7, MCV 88.8, MCH 28.5, MCHC 32.1, RDW 15.3, Plt Count 257, MPV 8.9, Neut % (Auto) 58.7, Lymph % (Auto) 30.8, Walker % (Auto) 6.5, Eos % (Auto) 3.0, Baso % (Auto) 1.0, Neut # (Auto) 6.2, Lymph # (Auto) 3.2, Walker # (Auto) 0.7, Eos # (Auto) 0.3, Baso # (Auto) 0.1, ESR 16, Sodium 140, Potassium 4.4, Chloride 106, Carbon Dioxide 27, Anion Gap 11.4, BUN 17, Creatinine 0.80, Estimated Creat Clear 54, Estimated GFR 72, Est GFR ( Amer) 88, Glucose 202 H, Calcium 9.3, Total Bilirubin 0.6, AST 28, ALT 24, Alkaline Phosphatase 117, Troponin I < 0.01, C-Reactive Protein 15.8 H, Total Protein 7.0, Albumin 3.8, Globulin 3.2, Albumin/Globulin Ratio 1.2 03/08/24 14:15: Troponin I < 0.01 03/08/24 11:47 03/08/24 11:47 Orders (Tests/Meds): ED MEDICATIONS Generic Name Dose Route Start Last Admin Trade Name Freq PRN Reason Stop Dose Admin Sodium Chloride 10 ml 03/08/24 12:51 03/08/24 12:54 Sodium Chloride 0.9% 10ml Syr (Rad Only) IV 04/07/24 12:50 10 ml NEEDED PRN Administration Maintain IV Site Discontinued Medications Generic Name Dose Route Start Last Admin Trade Name Freq PRN Reason Stop Dose Admin Iopamidol 190 ml 03/08/24 12:51 03/08/24 12:54 Iopamidol-370 (76%);100ml Bottle IV 03/08/24 12:52 190 ml ONCE ONE Administration Sodium Chloride 100 ml 03/08/24 12:51 03/08/24 12:54 0.9 % Sodium Chloride 50 Ml Vial IV 03/08/24 12:52 100 ml ONCE ONE Administration ORDERS Category Date Time Status CT angio UE LT Stat Cat Scan 03/08/24 11:[address] angio chest - dissection Stat Cat Scan 03/08/24 11:[address] angio head Stat Cat Scan 03/08/24 11:[address] angio neck Stat Cat Scan 03/08/24 11:[address] cervical spine wo con Stat Cat Scan 03/08/24 11:[address] head/brain wo con Stat Cat Scan 03/08/24 11:54 Completed CMP [Comprehensive Metabolic Panel] Stat Lab 03/08/24 11:47 Completed CRP [C-Reactive Protein] Stat Lab 03/08/24 11:47 Completed Complete Blood Count Auto Diff Stat Lab 03/08/24 11:47 Completed ESR [Erythrocyte Sedimentation Rate] Stat Lab 03/08/24 11:47 Completed Trop I [Troponin I] Stat Lab 03/08/24 11:47 Completed Troponin I Q3H Lab 03/08/24 14:15 Completed Troponin I Q3H Lab 03/08/24 18:00 Ordered ECG Data Tracing #1: I reviewed this ECG and interpreted as documented below: Sinus tachycardia with a ventricular rate of [address] changes concerning for ischemia. Normal axis and intervals. ECG initial impression date: 03/08/24 ECG initial impression time: 11:51 Medical Decision Narrative: In summary, this patient is a 64-year-old female presenting to the Emergency Department for evaluation of left arm pain, numbness, and tingling. Differential diagnoses considered include but are not limited to peripheral neuropathy, ulnar nerve entrapment/cubital tunnel syndrome, cervical radiculopathy, hematoma, soft tissue infection, CVA, ACS, vascular anomaly. Ruling out the most morbid conditions drove assessment. It should be noted patient's history includes type 2 DM which may or may not be at goal therapy. This complicates all aspects of care by increasing patient's risk for morbidity. On exam, the patient is well-appearing. Based on her clinical picture, exam, and history, doubt CVA as a cause, however will obtain stroke scans to further work this up. Her last known normal is many days ago, so she is outside of tPA or thrombectomy window regardless. I favor peripheral cause of neuropathy based on her left upper arm pain and exam. Her numbness and tingling are limited to the C8 dermatome. She has diminished nut threader strength with weakness in opposition of her pinky. She has preserved abduction/adduction as well as flexion/extension, and she also has intact thumb motor movements and sensation. Workup included CBC, CMP, ESR, CRP, troponin, EKG, CT head without contrast, CTA chest, left upper extremity, head, and neck. I independently interpreted CT scan prior to the radiologist read and noted no obvious large stroke, no obvious space-occupying lesion in her arm, no obvious vascular abnormality. Please see their read for final interpretation. Labs were obtained that demonstrated no acutely concerning abnormalities aside from very mild elevation in her inflammatory markers, which is nonspecific. On reassessment, the patient is resting comfortably. She has persistent paresthesias, but exam is otherwise reassuring still at this point. Ultimately, I feel she likely has either cervical radiculopathy affecting the C8 nerve root versus ulnar nerve compression/cubital tunnel syndrome. I feel that she is appropriate for discharge home with prescription for naproxen to treat inflammation. I advised that she follow-up very closely with orthopedics as well as her primary care provider. She may benefit from neurology evaluation as an outpatient. Ultimately, feel we have ruled out life-threatening pathology and the patient is appropriate for discharge home with the anti-inflammatory and instructions for strict return precautions. She was discharged after all questions were answered. Critical Care Critical Care Time Critical Care Time: No
[2024-03-08 12:10] LABS: Chloride 106 mmol/L (98-107); Sodium 140 mmol/L (136-145)
[2024-03-08 12:11] LABS: Potassium 4.4 mmoL/L (3.5-5.1)
[2024-03-08 12:13] LABS: Alanine Aminotransferase 24 U/L (12-78); Albumin Level 3.8 g/dl (3.5-5.0); Albumin/Globulin Ratio 1.2 (1.1-1.8); Alkaline Phosphatase 117 U/L (38-126); Anion Gap 11.4 mEq/L (5-15); Aspartate Amino Transferase 28 U/L (14-36); Bilirubin,Total 0.6 mg/dl (0.2-1.3); Blood Urea Nitrogen 17 mg/dl (7-17); Carbon Dioxide 27 mmol/L (22.0-30.0); Creatinine Clearance Estimated 54 mL/min (50-200); Estimated Glomerular Filt Rate 72 ml/min (>60); GFR (African American) 88 ML/MIN (>60); Globulin 3.2 g/dL (1.3-3.2)
[2024-03-08 12:14] LABS: Calcium 9.3 mg/dl (8.4-10.2); Glucose 202 mg/dl (74-100)
[2024-03-08 12:19] LABS: C-Reactive Protein 15.8 mg/L (0-4)
[2024-03-08 12:37] LABS: Troponin I < 0.01 ng/ml (0.00-0.034)
[2024-03-08] MEDS: IOPAMIDOL-370 (76%);100ML BOTTLE 190 ML IV (12:54)
[2024-03-08] MEDS: SODIUM CHLORIDE 0.9% 10ML SYR (RAD ONLY) 10 ML IV (12:54)
[2024-03-08] MEDS: 0.9 % SODIUM CHLORIDE 50 ML VIAL 100 ML IV (12:54)
--- NOTE | 2024-03-08 12:54 | PC.NURSE ---
pt in ct at this time
[2024-03-08 13:15] LABS: Erythrocyte Sedimentation Rate 16 mm/hr (0-30)
[2024-03-08 14:42] LABS: Troponin I < 0.01 ng/ml (0.00-0.034)
== END 2024-03-08 15:22 | disposition home or self-care (01) ==
PROVIDERS: Emergency Provider Emergency Medicine; PCP Family Medicine
DX: R20.2 Paresthesia of skin (principal); M48.02 Spinal stenosis, cervical region; M79.602 Pain in left arm; R00.0 Tachycardia, unspecified; E11.65 Type 2 diabetes mellitus with hyperglycemia; E78.5 Hyperlipidemia, unspecified; Z79.4 Long term (current) use of insulin; Z79.84 Long term (current) use of oral hypoglycemic drugs
CPT/HCPCS: 70450; 70496; 70498; 71275; 72125; 73206; 80053; 84484; 85025; 85651; 86140; 93005; 99285; Q9967

== ENCOUNTER 2024-03-16 08:59 | Outpatient (CLI) | payer MEDICARE, SELFPAY ==
--- NOTE | 2024-03-16 09:02 | XR_ITS ---
FINAL REPORT CLINICAL HISTORY: left hand numbnes FINDINGS: LEFT HAND Three views demonstrate no acute fracture or dislocation. The visualized joint spaces are normally aligned. The soft tissues are unremarkable. IMPRESSION: No acute process. Reviewed, Interpreted and Dictated by Karen Mckinnon MD Transcribed by Starr Temple Authenticated and [facility]
== END 2024-03-16 23:59 | disposition home or self-care (01) ==
LOC: RAD 09:00
PROVIDERS: Visit Provider Physician Assistant Surgical
DX: R20.0 Anesthesia of skin (principal); R20.2 Paresthesia of skin
CPT/HCPCS: 73130

== ENCOUNTER 2024-04-12 10:02 | Emergency (ER) | payer MEDICARE, SELFPAY ==
--- NOTE | 2024-04-11 10:21 | ECG_ITS ---
APPROVED REPORT Exam: Resting ECG HR:91 bpm ECG Measurements Heart Rate 91 AXES OR 167 P 53 QRSd 96 QRS 46 QT 351 T 35 QTc 400 Conclusion SINUS RHYTHM NORMAL ECG Electronically signed by : STEPHEN LANGE, 04/13/2024 15:10:54
[2024-04-12 10:03] VITALS: BP 137/56; PULSE 101; RESP 16; TEMP 37.8; O2SAT 96; BMI 46.3
--- NOTE | 2024-04-12 10:25 | PC.NURSE ---
FSBS is 216 at this time
[2024-04-12 10:32] VITALS: BP 136/71; PULSE 93; RESP 24; O2SAT 97
--- NOTE | 2024-04-12 10:48 | CT_ITS ---
PROCEDURE INFORMATION: Exam: CTA Neck With Contrast Exam date and time: 04/12/2024 11:29 AM Age: 64 years old Clinical indication: Stroke-like symptoms; Visual disturbance; Additional info: Blurred vision confusion TECHNIQUE: Imaging protocol: Computed tomographic angiography of the neck with contrast. Exam focused on the cervical segments of the vasculature. 3D rendering (Not supervised by radiologist): MIP and/or 3D reconstructed images were created by the technologist. Radiation optimization: All CT scans at this facility use at least one of these dose optimization techniques: automated exposure control; mA and/or kV adjustment per patient size (includes targeted exams where dose is matched to clinical indication); or iterative reconstruction. Contrast material: ISOVUE 370; Contrast volume: 80 ml; Contrast route: INTRAVENOUS (IV); COMPARISON: CT ANGIO NECK 03/08/2024 12:38 PM FINDINGS: The common carotid arteries take a retropharyngeal course. Right common carotid artery: The right carotid bulb is retropharyngeal. Right internal carotid artery: There is calcific and soft plaque noted at the origin of the right internal carotid artery causing less than 40% stenosis. Right external carotid artery: No occlusion or stenosis of the origin. Left common carotid artery: The left carotid bulb is retropharyngeal. Left internal carotid artery: There is minor atheromatous calcific plaque at the origin of the left internal carotid artery causing no significant stenosis. Left external carotid artery: No occlusion or stenosis of the origin. Right vertebral artery: No stenosis. No dissection or occlusion. Left vertebral artery: No stenosis. No dissection or occlusion. Direct origin from the aortic arch. Soft tissues: Normal. No significant soft tissue swelling. Bones/joints: No acute fracture. Lungs: There is a 4 mm pleural-based nodule along the right upper lobe convexity on series 4, image 37 unchanged from the prior examination. IMPRESSION: Atheromatous plaque without significant stenosis. REFERENCES: NASCET CRITERIA. The degree of stenosis in the cervical segment of the internal carotid artery is based on NASCET criteria. Normal is no stenosis. Mild is less than 50% stenosis. Moderate is 50-69% stenosis. Severe is 70% to 99% stenosis. Total occlusion is no detectable patent lumen.
--- NOTE | 2024-04-12 10:48 | CT_ITS ---
PROCEDURE INFORMATION: Exam: CTA Head With Contrast, Arteriography Exam date and time: 04/12/2024 11:29 AM Age: 64 years old Clinical indication: Stroke-like symptoms; Visual disturbance; Additional info: Blurred vision confusion TECHNIQUE: Imaging protocol: Computed tomographic angiography of the head with contrast. Exam focused on the arteries. 3D rendering (Not supervised by radiologist): MIP and/or 3D reconstructed images were created by the technologist. Radiation optimization: All CT scans at this facility use at least one of these dose optimization techniques: automated exposure control; mA and/or kV adjustment per patient size (includes targeted exams where dose is matched to clinical indication); or iterative reconstruction. Contrast material: ISOVUE 370; Contrast volume: 80 ml; Contrast route: INTRAVENOUS (IV); COMPARISON: CT ANGIO HEAD 03/08/2024 12:38 PM FINDINGS: ANTERIOR CIRCULATION: Right internal carotid artery: Intracranial segment is patent with no significant stenosis. No aneurysm. Right middle cerebral artery: No occlusion or significant stenosis. No aneurysm. Right anterior cerebral artery: No occlusion or significant stenosis. No aneurysm. Left internal carotid artery: Intracranial segment is patent with no significant stenosis. No aneurysm. Left middle cerebral artery: No occlusion or significant stenosis. No aneurysm. Left anterior cerebral artery: No occlusion or significant stenosis. No aneurysm. POSTERIOR CIRCULATION: Right vertebral artery: No occlusion or significant stenosis. No aneurysm. Left vertebral artery: No occlusion or significant stenosis. No aneurysm. Basilar artery: No occlusion or significant stenosis. No aneurysm. Right posterior cerebral artery: No occlusion or significant stenosis. No aneurysm. Left posterior cerebral artery: No occlusion or significant stenosis. No aneurysm. Brain: No definite mass, mass effect, or midline shift. Cerebral ventricles: No ventriculomegaly. Bones/joints: Unremarkable. No acute fracture. Soft tissues: Unremarkable. IMPRESSION: No large vessel stenosis or occlusion.
--- NOTE | 2024-04-12 10:48 | CT_ITS ---
PROCEDURE INFORMATION: Exam: CT Head Without Contrast Exam date and time: 04/12/2024 11:27 AM Age: 64 years old Clinical indication: Stroke-like symptoms; Visual disturbance; Additional info: Blurred vision, confusion TECHNIQUE: Imaging protocol: Computed tomography of the head without contrast. Radiation optimization: All CT scans at this facility use at least one of these dose optimization techniques: automated exposure control; mA and/or kV adjustment per patient size (includes targeted exams where dose is matched to clinical indication); or iterative reconstruction. Other technique: STROKE PROTOCOL was implemented. COMPARISON: CT ANGIO HEAD 03/08/2024 12:38 PM FINDINGS: Brain: Normal. No hemorrhage. Unremarkable white matter. No mass effect. Cerebral ventricles: No ventriculomegaly. Paranasal sinuses: Visualized sinuses are unremarkable. No fluid levels. Mastoid air cells: Visualized mastoid air cells are well aerated. Bones: Unremarkable. No acute fracture. Soft tissues: Unremarkable. IMPRESSION: 1. No evidence of acute intracranial abnormality. 2. A call has been placed referring physician at which time an addended report will be issued. ASSESSMENT: ASPECTS ([place] Stroke Program Early CT Score) is 10.
--- NOTE | 2024-04-12 10:49 | XR_ITS ---
PROCEDURE INFORMATION: Exam: XR Chest Exam date and time: 04/12/2024 11:01 AM Age: 64 years old Clinical indication: Dyspnea TECHNIQUE: Imaging protocol: Radiologic exam of the chest. Views: 1 view. COMPARISON: CT ANGIO CHEST 03/08/2024 12:53 PM FINDINGS: Lungs: Unremarkable. No consolidation. Pleural spaces: Haziness and indistinctness of the costophrenic angles. Findings most likely secondary to overlying breast shadows. Small bilateral pleural effusions could not be excluded. Heart/Mediastinum: Unremarkable. No cardiomegaly. Bones/joints: Unremarkable. Other findings: Study limited by technique. IMPRESSION: Haziness and indistinctness of the costophrenic angles. Findings most likely secondary to overlying breast shadows. Small bilateral pleural effusions could not be excluded.
--- NOTE | 2024-04-12 10:51 | HMH.EDGENADL ---
Discharge Plan Disposition Patient Disposition: Home, Self-Care Prescriptions Prescriptions: New cefdinir 300 mg capsule 300 mg PO BID 7 Days Qty: 14 0RF No Action metformin 1,000 mg tablet 1,000 mg PO DAILY 30 Days Qty: 60 atorvastatin 40 mg tablet 40 mg PO DAILY 30 Days Qty: 30 paroxetine HCl [Paxil] 10 mg tablet 10 mg PO DAILY Basaglar KwikPen U-100 Insulin 100 unit/mL (3 mL) insulin pen 30 unit SQ DAILY cholecalciferol (vitamin D3) 5,000 unit capsule 5,000 unit PO DAILY ergocalciferol (vitamin D2) [Vitamin D2] 50,000 unit capsule 50,000 unit PO QWEEK Basaglar KwikPen U-100 Insulin 100 unit/mL (3 mL) insulin pen 20 unit SQ DAILY naproxen 500 mg tablet 500 mg PO BID Qty: 60 0RF furosemide 20 MG tablet 20 mg PO DAILY sulfamethoxazole-trimethoprim [Bactrim DS] 800-160 mg Tablet 1 tab PO BID Qty: 20 0RF cephalexin 500 mg capsule 500 mg PO QID Qty: 40 0RF mupirocin 2 % ointment 1 applic topical TID 7 Days Qty: 15 0RF naproxen 500 mg tablet 500 mg PO BID Qty: 20 0RF methocarbamol 500 mg tablet 500 mg PO Q8H Qty: 21 0RF lidocaine [DermacinRx Lidocan] 5 % adhesive patch,medicated 1 patch topical DAILY Qty: 5 0RF Rx Instructions: leave on most painful area for up to 12 hrs Referrals Follow up/Referrals: Emmanuel Parra MD [Primary Care Provider] - See instructions Activity Restrictions/Add. Instructions Additional Instructions/Restrictions: There is no evidence of an acute neurologic emergency today. Your serial neurologic exams were normal for me. The subconjunctival hemorrhage should resolve with time. You were found to have urinary tract infection which is likely the explanation of your increased urinary frequency over the last several weeks. Please return to the emergency room with any significant worsening of her symptoms otherwise follow-up with primary care doctor as needed. Clinical Impressions Clinical Impression: Subconjunctival hemorrhage, Confusion, Panic attack, UTI (urinary tract infection) Print Language Print Language: Bulgarian Discharge ED Provider: Sarah Smith General Adult HPI General Chief complaint: PAIN Stated complaint: unable to see out of right eye Time Seen by Provider: 04/12/24 10:47 Mode of Arrival: Wheelchair Source of Information: Patient and Spouse Limitations: No Limitations Description of Symptoms (Recalled from ER Triage Doc. by RN): Reports right eye pain and dizziness. States she feels foggy and confused. History of Present Illness HPI narrative: Patient is a 64-year-old female presenting today with concerns for possible stroke her fianc? who is with her states that he looked at her I noted that was something abnormal and at this point she looked at herself initially stating there is nothing going on but got acutely concerned about her appearance with regards to her eye and stated that her vision became blurry and that she had some confusion. Her fianc? felt as though she may be having a stroke and brought her to the emergency department. She states that she was not having any symptoms prior to her fianc? recognizing there is something abnormal with her eye. He felt there may be some facial asymmetry. She does have a history of panic attack and anxiety attacks in the past. She denies any other definitive symptoms such as focal neurologic weakness in her upper or lower extremities changes in coordination she currently states to me that she is having normal vision but does feel little bit confused. Related Data Home Medications ?Medication ?Instructions ?Recorded ?Confirmed atorvastatin 40 mg tablet 40 mg PO DAILY Cholesterol 30 days 06/14/18 03/31/24 #30 tabs metformin 1,000 mg tablet 1,000 mg PO DAILY DM 30 days #60 06/14/18 03/31/24 tabs paroxetine HCl 10 mg tablet (Paxil) 10 mg PO DAILY Depression 06/14/18 03/31/24 cholecalciferol (vitamin D3) 125 5,000 unit P
[2024-04-12 10:55] LABS: Microscopic, Urine URINE MICROSCOPIC (MICROSCOPIC)
[2024-04-12 10:55] LABS: Basophils # 0.1 K/mm3 (0-0.2); Basophils % 0.9 % (0.1-2.0); Eosinophils # 0.2 K/mm3 (0.0-0.4); Eosinophils % 2.5 % (0.1-12.0); Hematocrit 45.7 % (37.0-47.0); Hemoglobin 14.5 g/dL (12.2-16.2); Lymphocytes # 2.4 K/mm3 (0.7-4.5); Lymphocytes % 30.6 % (10-50); Mean Corpuscular HGB Conc 31.7 g/dL (31.8-35.4); Mean Corpuscular Hemoglobin 28.5 pg (27.0-31.2); Mean Corpuscular Volume 89.7 fl (81-99); Mean Platelet Volume 8.1 fl (7.4-10.4); Monocytes # 0.5 K/mm3 (0.1-1.0); Neutrophils # 4.7 K/mm3 (1.8-7.8); Platelet Count 174 K/mm3 (142-424); Red Cell Distribution Width 15.5 % (11.5-17.5); White Blood Count 7.8 K/mm3 (4.8-10.8)
[2024-04-12 10:58] LABS: Appearance,Urine CLEAR (Clear); Bilirubin,Urine Negative (Negative); Blood, Urine Negative (Negative); Color,Urine YELLOW (Yellow); Glucose,Urine (UA) 2+ (Negative); Ketones,Urine Negative (Negative); Leukocyte Esterase,Urine 1+ (Negative); Nitrate,Urine Negative (Negative); Protein,Urine Negative (Negative); Specific Gravity, Urine >= 1.030 (1.005-1.030)
[2024-04-12 10:58] LABS: Albumin Level 3.7 g/dl (3.5-5.0); Chloride 104 mmol/L (98-107)
[2024-04-12 10:59] LABS: Potassium 4.1 mmoL/L (3.5-5.1); Sodium 138 mmol/L (136-145)
[2024-04-12 11:01] VITALS: BP 103/66; RESP 15
[2024-04-12 11:01] LABS: Blood Urea Nitrogen 16 mg/dl (7-17); Creatinine Clearance Estimated 54 mL/min (50-200); Estimated Glomerular Filt Rate 85 ml/min (>60); GFR (African American) 102 ML/MIN (>60)
[2024-04-12 11:02] LABS: Alanine Aminotransferase 20 U/L (12-78); Albumin/Globulin Ratio 1.1 (1.1-1.8); Alkaline Phosphatase 123 U/L (38-126); Anion Gap 8.1 mEq/L (5-15); Aspartate Amino Transferase 23 U/L (14-36); Bilirubin,Total 0.6 mg/dl (0.2-1.3); Calcium 8.6 mg/dl (8.4-10.2); Carbon Dioxide 30 mmol/L (22.0-30.0); Globulin 3.4 g/dL (1.3-3.2); Glucose 239 mg/dl (74-100); Total Protein,Serum 7.1 g/dl (6.3-8.2)
[2024-04-12 11:04] LABS: Activated Partial Thrombo Time 25.8 seconds (22.8-30.6); INR 0.94 (0.9-1.1); Prothrombin Time 10.6 seconds (10.1-12.5)
[2024-04-12 11:17] LABS: Bacteria,Urine 1+ /lpf; RBC,Urine Occasional #/hpf (0-3)
[2024-04-12 11:20] LABS: Troponin I < 0.01 ng/ml (0.00-0.034)
--- NOTE | 2024-04-12 12:18 | PC.NURSE ---
pt ASSISTED TO BATHROOM AND BACK TO ROOM
[2024-04-12 12:36] VITALS: BP 110/44; PULSE 90; RESP 18; TEMP 36.6; O2SAT 97
== END 2024-04-12 12:47 | disposition home or self-care (01) ==
PROVIDERS: Emergency Provider Student in an Organized Health Care Education/Training Program; PCP Family Medicine
DX: H11.31 Conjunctival hemorrhage, right eye (principal); R41.0 Disorientation, unspecified; R42 Dizziness and giddiness; N39.0 Urinary tract infection, site not specified; F41.0 Panic disorder [episodic paroxysmal anxiety]; E11.9 Type 2 diabetes mellitus without complications; E78.5 Hyperlipidemia, unspecified
CPT/HCPCS: 70450; 70496; 70498; 71045; 80053; 81001; 84484; 85025; 85610; 85730; 87086; 93005; 96361; 96374; 99285; J2060; J7120; Q9967

== ENCOUNTER 2024-04-14 16:59 | Outpatient (CLI) | payer MEDICARE, SELFPAY | END 2024-04-14 23:59 | disposition home or self-care (01) | LOC: RAD 17:00 | PROVIDERS: Visit Provider Physician Assistant Surgical | DX: M54.2 Cervicalgia (principal) ==

== ENCOUNTER 2024-08-25 08:27 | Emergency (ER) | payer MEDICARE, SELFPAY ==
[2024-08-25 08:33] VITALS: BP 151/73; PULSE 114; O2SAT 97
[2024-08-25 08:35] VITALS: BP 151/73; PULSE 108; RESP 18; TEMP 36.9; O2SAT 96; BMI 47.9
[2024-08-25 09:00] VITALS: BP 141/73; PULSE 101; O2SAT 95
--- NOTE | 2024-08-25 09:00 | ED_ITS ---
Discharge Plan Disposition Patient Disposition: Home, Self-Care Prescriptions Prescriptions: New doxycycline monohydrate 100 mg capsule 100 mg PO BID 10 Days Qty: 20 0RF No Action metformin 1,000 mg tablet 1,000 mg PO DAILY 30 Days Qty: 60 atorvastatin 40 mg tablet 40 mg PO DAILY 30 Days Qty: 30 paroxetine HCl [Paxil] 10 mg tablet 10 mg PO DAILY Basaglar KwikPen U-100 Insulin 100 unit/mL (3 mL) insulin pen 30 unit SQ DAILY cholecalciferol (vitamin D3) 5,000 unit capsule 5,000 unit PO DAILY ergocalciferol (vitamin D2) [Vitamin D2] 50,000 unit capsule 50,000 unit PO QWEEK Basaglar KwikPen U-100 Insulin 100 unit/mL (3 mL) insulin pen 20 unit SQ DAILY naproxen 500 mg tablet 500 mg PO BID Qty: 60 0RF furosemide 20 MG tablet 20 mg PO DAILY sulfamethoxazole-trimethoprim [Bactrim DS] 800-160 mg Tablet 1 tab PO BID Qty: 20 0RF cephalexin 500 mg capsule 500 mg PO QID Qty: 40 0RF mupirocin 2 % ointment 1 applic topical TID 7 Days Qty: 15 0RF naproxen 500 mg tablet 500 mg PO BID Qty: 20 0RF cefdinir 300 mg capsule 300 mg PO BID 7 Days Qty: 14 0RF methocarbamol 500 mg tablet 500 mg PO Q8H Qty: 21 0RF lidocaine [DermacinRx Lidocan] 5 % adhesive patch,medicated 1 patch topical DAILY Qty: 5 0RF Rx Instructions: leave on most painful area for up to 12 hrs Referrals Follow up/Referrals: Emmanuel Parra MD [Primary Care Provider] - See instructions Activity Restrictions/Add. Instructions Additional Instructions/Restrictions: For the next couple of days, apply warm, wet compresses in order to keep area draining. Doxycycline twice daily for 10 days. Call your family doctor to establish care for this visit to the emergency department and schedule follow-up within 48 hours to ensure improvement. If you have any worsening of your condition or any other concerning signs or symptoms, return to the emergency department or your primary care doctor for further evaluation. Clinical Impressions Clinical Impression: Abscess of breast Instructions Patient Instructions: DI for Skin Abscess Print Language Print Language: Greek Discharge ED Provider: Evette,Ross A General Adult HPI General Chief complaint: Skin/Abscess/Foreign Body Stated complaint: R breast blister Time Seen by Provider: 08/25/24 08:32 Mode of Arrival: Ambulatory Source of Information: Patient Limitations: No Limitations Description of Symptoms (Recalled from ER Triage Doc. by RN): Pt presents with c/o redness and drainage from right breast x 3 days History of Present Illness HPI narrative: Please note that above description of symptoms, in this electronic medical record under categorization of recalled from ER triage doctor by RN are reflective of an initial nursing assessment, however, is not reflective of my full history and physical exam that was personally taken and clarified. Consequentially, this preceding description of symptoms, which may include the patient's categorized chief complaint in the EMR, do not reflect my personal clinical impression, and the ultimate description of history of present illness and patient stated complaints should be deferred to this section of the note. Unless stated otherwise or congruent with this section of the note, additional signs, symptoms, or incongruence should be interpreted as inaccurate with my clinical impression. Related Data Home Medications ?Medication ?Instructions ?Recorded ?Confirmed atorvastatin 40 mg tablet 40 mg PO DAILY Cholesterol 30 days 06/14/18 03/31/24 #30 tabs metformin 1,000 mg tablet 1,000 mg PO DAILY DM 30 days #60 06/14/18 03/31/24 tabs paroxetine HCl 10 mg tablet (Paxil) 10 mg PO DAILY Depression 06/14/18 03/31/24 cholecalciferol (vitamin D3) 125 5,000 unit PO DAILY Supplement 05/18/19 03/31/24 mcg (5,000 unit) capsule ergocalciferol (vitamin D2) 1,250 50,000 unit PO QWEEK Supplement 05/18/19 03/31/24 mcg (50,000 unit) capsule (Vitamin D2) insulin glargine 100 unit/mL (3 20 unit SQ DAILY DM 05/18/19 03/31/24 mL) subcutaneous pen (Basaglar KwikPen U-100 Insulin) insulin glargine 100 unit/mL (3 30 unit SQ DAILY DM 05/18/19 03/31/24 mL) subcutaneous pen (Basaglar KwikPen U-100 Insulin) furosemide 20 mg tablet 20 mg PO DAILY Edema 03/20/23 03/31/24 Previous Rx's ?Medication ?Instructions ?Recorded cephalexin 500 mg capsule 500 mg PO QID #40 caps 03/20/23 mupirocin 2 % topical ointment 1 applic topical TID 7 days #15 03/20/23 grams sulfamethoxazole 800 1 tab PO BID #20 tabs 03/20/23 mg-trimethoprim 160 mg tablet (Bactrim DS) lidocaine 5 % topical patch 1 patch topical DAILY #5 ea 05/06/23 (DermacinRx Lidocan) methocarbamol 500 mg tablet 500 mg PO Q8H #21 tabs 05/06/23 naproxen 500 mg tablet 500 mg PO BID #20 tabs 03/08/24 naproxen 500 mg tablet 500 mg PO BID #60 tabs 03/16/24 cefdinir 300 mg capsule 300 mg PO BID 7 days #14 caps 04/12/24 doxycycline monohydrate 100 mg 100 mg PO BID 10 days #20 caps 08/25/24 capsule Allergies Allergy/AdvReac Type Severity Reaction Status Date / Time hydromorphone (From DILAUDID) Allergy Unknown MAKES HER Verified 03/31/24 13:44 FEEL LIKE SOMETHING CRAWLING ON HER SKIN meperidine (MEPERIDINE) Allergy Unknown NA-NAUSEA/V Verified 03/31/24 13:44 OMITING PFSH PFSH Disclaimer: The information contained in this section may have been updated after the patient was seen, as this information can be updated by other users. Medical History Erosion of transobturator mid-urethral sling History of heart attack Anxiety Urinary tract infection Diabetes mellitus, type 2 Hyperlipidemia Surgical History H/O tubal ligation History of cholecystectomy Social History Smoking Status: Never smoker alcohol intake: never current occupational status: other Travel in the last 8 weeks: None Have you lived/traveled outside [place] in past 30 days?: No Contact w/someone who lives/traveled outside [place] past 30 days?: No Exposure to someone with infectious disease in past 14 days?: No Do you have a fever (greater than 100.4 F or 38 C)?: No Have you tested positive for COVID-19: No Exposed to someone with COVID-19 in past 14 days?: No Do you have a sore throat?: No Do you have a cough?: No Do you have any weakness?: No Do you have any diarrhea?: No Are you experiencing any unusual bleeding?: No Do you have any muscle aches/pain?: No Do you have any abdominal pain?: No Are you experiencing loss of taste or smell?: No Other Medical History Have you received the Flu Vaccine for this season: Yes Have you received the Pneumonia Vaccine: No ROS Obtained: Yes All systems reviewed & no additional complaints except as documented Physical Exam General General appearance: alert Head Head exam: atraumatic and normocephalic Eye Eye exam: Present normal appearance, PERRL and EOMI Neck Neck exam: Present normal inspection, full ROM and trachea midline Chest Chest inspection: Present abscess Respiratory Respiratory exam: Absent respiratory distress, wheezes, stridor, accessory muscle use or prolonged expiratory phase Cardiovascular Cardiovascular exam: Present other (Pulses equal symmetric in upper and lower extremities) Abdominal Exam Abdominal exam: Present soft; Absent distention, tenderness or pulsatile mass Extremities Exam Extremities exam: Absent edema Neurological Exam Neurological exam: Present alert, oriented X3 and CN II-XII intact; Absent motor sensory deficit Skin Skin exam: Present warm and dry; Absent diaphoresis or erythema Medical Decision Making Medical Records Medical records reviewed: Yes I reviewed the patient's medical records. Screening: Per USPSTF and CDC recommendations, given the prevalence of disease in our region, it is our hospital?s policy to screen for HIV and viral Hepatitis for all patients aged 18 and over and those with ongoing risk factors. Arnold Inquiry Pt receiving controlled substance: No Arnold was queried for this patient: No Vital Signs: 08/25/24 08:33 08/25/24 08:35 08/25/24 09:00 Temperature 98.5 F Temperature Source Oral Pulse Rate 114 H 101 H Pulse Rate [Right Radial] 108 H Respiratory Rate 18 Blood Pressure 151/73 H 141/73 H Blood Pressure [Right Arm] 151/73 H Blood Pressure Mean [Right Arm] 99 Blood Pressure Source [Right Arm] Automatic Cuff 02 Sat by Pulse Oximetry 97 96 95 Oxygen Delivery Method Room Air Room Air Room Air Orders (Tests/Meds): ED MEDICATIONS Discontinued Medications Generic Name Dose Route Start Last Admin Trade Name Freq PRN Reason Stop Dose Admin Doxycycline Hyclate 100 mg 08/25/24 08:55 08/25/24 09:03 Doxycycline Hycl 100 Mg Tablet PO 08/25/24 08:56 100 mg ONCE ONE Administration Lidocaine HCl 20 ml 08/25/24 08:55 08/25/24 09:04 Lidocaine 1% 20ml Mdv SUBCUT 08/25/24 08:56 20 ml ONCE ONE Administration ORDERS Category Date Time Status POCUS Point of Care (ER Only) Stat Exams 08/25/24 08:32 Completed Medical Decision Narrative: 64 no history of hypertension, hyperlipidemia, diabetes presenting with breast abscess. Started a couple days prior to this and has gotten worse. No systemic signs or symptoms. Draining bloody, purulent fluid up until yesterday, 08/24. Came in for further evaluation. History was obtained via conversation with patient. On arrival, patient hemodynamically stable, alert, oriented x4, appropriate, GCS 15, moving all extremities spontaneously, pupils equal and reactive to light. Full physical exam performed and significant for obese female who is in no acute distress. Painful, tender, indurated breast about 10 cm x 4 cm lateral to her right areola. Differential includes abscess, cellulitis, among others. Patient was given initial dose of doxycycline here. Bedside [id number] ultrasound was performed, patient has complex loculated abscess of the breast see procedure note. I&D was performed by me and expressed 2 to 3 cc of frankly purulent fluid with the loculation, see procedure note. Postprocedure, patient in no acute distress, appears very well and feels better after release of pressure. Because patient at baseline without signs or symptoms of clinical decompensation, deemed appropriate for discharge. Results were relayed to patient who voiced understanding and were agreeable to outpatient management and follow up. I discussed my clinical impression with patient and answered all questions. At this time, the evidence for any other entities in the differential is insufficient to warrant any further testing or ED observation. This was explained as well. Advisory was given that persistent or worsening symptoms require further evaluation. I confirmed the understanding of this discussion. Electronic Parts Designer disclaimer Much of this encounter note is an electronic station engineer main line spoken language to printed text. Electronic station engineer main line of the spoken language may permit errors. Although I have reviewed the note, some errors may still exist. Procedures Abscess I/D Site: chest Side (if applicable): right Local Anesthetic: lidocaine 1% Amount of anesthesia used (mL): 8 Technique: incised with #11 blade (Deloculation with cotton-tipped applicator) Amount of fluid expressed (mL): 3 Irrigation: Yes Packing used?: none Limited Ultrasound Indication:: Limited soft tissue ultrasound Indication: Soft tissue swelling, pain, redness, fluctuance of right breast Identified structures: Location: Right breast lateral to the areola Findings: Cellulitis with abscess, complex right breast. Does not appear to violate subcutaneous tissue Impression: Subcutaneous abscess of the right breast with loculations and surrounding cellulitis Images [were saved] to permanent archive The study [was] technically adequate Soft Tissue CPT Codes: CPT Neck: 05271-41 CPT Upper extremity: 99514-02 CPT Axilla: 26361-81 CPT Chest wall: 84790-62 CPT Breast: 80790-76-IR/LT (complete), 68837-72-WS/LT (limited), CPT Upper Back: 77712-24 CPT Lower Back: 94549-28 CPT Abdominal Wall: 53985-60 CPT Pelvic Wall: 47954-35 CPT Lower Extremity: 81364-21 CPT Other Soft Tissue: 79542-06 This study was performed by me, and I personally interpreted all images/videos. Based on my clinical judgement, these images were [adequate/inadequate] and [did/did not] necessitate further imaging. Critical Care Critical Care Time Critical Care Time: No
[2024-08-25] MEDS: DOXYCYCLINE HYCL 100 MG TABLET PO (09:03)
[2024-08-25] MEDS: LIDOCAINE 1% 20ML MDV 20 ML SUBCUT (09:04)
[2024-08-25 09:31] VITALS: BP 126/61; PULSE 108; O2SAT 96
[2024-08-25 10:03] VITALS: BP 117/80; PULSE 98; RESP 18; TEMP 36.8; O2SAT 98
== END 2024-08-25 10:06 | disposition home or self-care (01) ==
PROVIDERS: Emergency Provider Emergency Medicine; PCP Family Medicine
DX: N61.1 Abscess of the breast and nipple (principal)
CPT/HCPCS: 10060; 99283